=== PATIENT | female | born 1945 | race Caucasian/White ===

== ENCOUNTER 2016-11-13 15:40 | Inpatient (IN) | payer MEDICARE ==
[~2016-11-13] VITALS: Ht 160 cm; Wt 124.5 kg
[2016-11-13 18:05] VITALS: BP 152/83
[2016-11-13] MEDS ORDERED: DIAZEPAM 2 MG (VALIUM) TAB PO PRN (19:30)
[2016-11-13] MEDS ORDERED: CYCLOBENZAPRINE 10 MG (FLEXERIL) TAB PO PRN (19:30)
[2016-11-13] MEDS: RT-ADVAIR HFA 115/21 MCG PER PUFF IH SCH (20:00)
[2016-11-13] MEDS ORDERED: RT-ALBUTEROL SULF 2.5 MG/3 ML PRE-MIX VIAL IH PRN (20:00)
[2016-11-13] MEDS: CIPROFLOXACIN 500 MG (CIPRO) TABLET PO SCH (20:48)
[2016-11-13] MEDS: CARVEDILOL 12.5 MG (COREG) TABLET PO SCH (20:48)
[2016-11-13] MEDS: inSUlin DETERMIR 1 UNIT/0.01 ML (LEVEMIR) CHARGE PER UNIT SQ SCH (20:48)
[2016-11-13] MEDS: HYDROcodone/APAP 5 MG/325 MG (LORTAB) TAB PO PRN (20:48)
--- NOTE | 2016-11-13 20:59 | HISTORY AND PHYSICAL ---
DATE OF SERVICE: 11/13/2016 CHIEF COMPLAINT: Difficulty with transferring in and out of bed, decreased mobility. HISTORY OF PRESENT ILLNESS: The patient is a 71-year-old female with insulin-dependent diabetes mellitus for many years, as well as a right BKA who had been modified independent at the wheelchair level until recently when she developed pneumonia requiring hospitalization this past July at [facility]. She was subsequently sent to a local care center and then went home where she developed a UTI. She was subsequently admitted to [facility] on 11/08/2016. She was treated with antibiotics for sepsis due to UTI.She was found to have drainage from leg wounds positive for MRSA and patient was placed on contact precautions. She currently has an indwelling Lester catheter. She requires assistance for her ADLs and mobility skills. Her over 2 years ago. She lives in a double-wide trailer in [facility] with her daughter. Her daughter does work three 12-hour shifts, working for the [employer] and is not home during that time. She does have ramps for accessibility to her home. She has her own power chair. She is currently completing a course of Cipro for her UTI. She has some skin breakdown on her residual right leg as well as her left leg and she has dressings on those. She complains of pain in her right shoulder and arm which relates to rheumatism or arthritic pain as well as pain over the coccygeal region from pressure.She currently is min assist for transfers She is non ambulatory.She has her Poer chair here and is able to operate it.She is Modified Independent for eating and Setup for grooming.She is Mod asssit for bathing and upper body dressing. She is dependent for lower body dressing.Bladder currently managed with Indwelling Lester catheter Bowel reported to be continent PAST MEDICAL HISTORY: Right BKA, diabetic leg ulcers, stroke in the past with minimal left residual hemiparesis, type 2 diabetes mellitus, insulin-dependent. Chronic renal insufficiency, congestive heart failure, GERD, hypertension, hyperlipidemia. PAST SURGICAL HISTORY: Right BKA, hysterectomy. ALLERGIES: LISINOPRIL. FAMILY HISTORY: Noncontributory. SOCIAL HISTORY: Essentially is per above. REVIEW OF SYSTEMS: A 10-point review of systems is significant for right arm pain, coccygeal pain from pressure, generalized weakness, fatigues easily. MEDICATIONS: Cipro 500 mg p.o. b.i.d., hydrocodone/APAP 5/325 one tablet p.o. q.4 hours p.r.n. pain, diazepam 2 mg p.o. t.i.d. p.r.n. anxiety, Advair Diskus 2 puffs b.i.d., albuterol inhaler 2 puffs q.4 hours p.r.n. shortness of breath, ASA 81 mg p.o. daily, Lipitor 40 mg p.o. each day at bedtime, Coreg 25 mg p.o. b.i.d., Flexeril 10 mg p.o. t.i.d. p.r.n. spasm, fluoxetine 20 mg p.o. daily, insulin NovoLog 24 units subcutaneous with meals and insulin Detemir 45 units subcutaneous b.i.d., amlodipine 10 mg p.o. daily, Protonix 20 mg p.o. daily, Plavix 75 mg p.o. daily. PHYSICAL EXAMINATION: GENERAL: Significant for a pleasant obese female appearing her stated age, lying in bed in no acute distress. VITAL SIGNS: Blood pressure is 145/71, pulse is 65. She is afebrile, respirations 20. Height 5 feet 3 inches, weight 274 pounds, BMI 48.63. O2 sat 93% on room air. HEENT: The patient's speech and hearing is grossly intact. No oral lesion is noted. NECK: Supple without mass. HEART: Regular rhythm. LUNGS: Clear. ABDOMEN: Obese, soft, nontender. Bowel sounds present. EXTREMITIES: Her right BKA is nontender to the touch. There is a small area of skin breakdown covered with a bandage. Her left leg sensation is grossly intact to touch. She has 2 areas of skin breakdown covered with small dressings. GENITOURINARY: Indwelling Lester catheter to dependent drainage. MUSCULOSKELETAL: The patient has functional passive range of motion of all 4 limbs. NEUROLOGIC: Sensation is grossly intact to touch. Cognition grossly intact.. She is nonambulatory. Strength RT Upper Extremity 2/5 Left Upper extremity 5/5 Hip flexion bilateral 2/5. Left knee extension 5/5 left ankle 5/5 Rt knee flexion 4/5 IMPRESSION: 1. General debilitation secondary to sepsis due to urinary tract infection. 2. Morbid obesity. 3. Insulin-dependent diabetes mellitus. 4. Hypertension, controlled with medication. 5. Gastroesophageal reflux disease, on medication. 6. Prior right-sided stroke with minimal residual left hemiparesis. 7. Right pqzix-ncw-mfiu amputation. 8. Diabetic ulcers both legs with mrsa drainage on contact precautions PLAN: The patient will have a comprehensive program of inpatient rehabilitation with a goal of maximizing level of functional independence prior to discharge home with her daughter. Will focus on wheelchair level of function as she has been nonambulatory for years, I believe. She states that she was provided with a prosthesis, but it never fitted correctly. The patient will have PT, OT 90 minutes per day each discipline, 5 days a week for 2 weeks for wheelchair level of function mobility and transfers, bed mobility, balance, ADLs, any patient, family caregiver training necessary, any adaptive equipment and training necessary. Speech therapy to do cognitive assessment, treat as indicated. Rehabilitation nursing to assist with bowel, bladder, skin, wound care, medication administration, pain management Lester catheter care. Will discontinue Lester catheter in a few days and have a trial of voiding. electronics worker to assist with discharge planning, community reentry. Will consultDR Engel to assist with medical management in this out-of-town patient. Accu-Cheks q.i.d. a.c. and at bedtime. Check admission labs in a.m. Consult Dr. Dietz, wound care service, for followup care of chronic diabetic foot ulcers.Continue contact precautions.The patient requesting a trapeze to assist with bed mobility.I believe that the patient was using one at home.Have asked Nursing to follow up re availability. ESTIMATED LENGTH OF STAY: Two weeks. PROGNOSIS: Rehab prognosis appears good for goal of discharging home with daughter, hopefully modified independent to supervision for ADLs and mobility skills at the wheelchair level of function. DIET: Carb consistent. CODE STATUS: Full code. Job ID: [id number] DocumentID: [id number] Dictated Date: 11/13/2016 19:51:56 Principal Military Analyst Date: 11/13/2016 20:58:40 Dictated By: MINOR COLÓN MD [facility]
[2016-11-13] MEDS ORDERED: ATORVASTATIN 40 MG (LIPITOR) TABLET PO SCH (21:00)
[2016-11-14 06:00] VITALS: BP 99/45
[2016-11-14] MEDS ORDERED: PANTOPRAZOLE 20 MG TABLET (PROTONIX) PO SCH (07:00)
[2016-11-14] MEDS: RT-ADVAIR HFA 115/21 MCG PER PUFF IH SCH (07:40)
[2016-11-14 07:48] LABS: BASOPHILS % (AUTO) 0 % (0-10); EOSINOPHILS # (AUTO) 0.2 10^3/uL (0.0-0.3); EOSINOPHILS % (AUTO) 3 % (0-10); LYMPHOCYTES # (AUTO) 1.1 X 10^3 (1.0-4.0); LYMPHOCYTES % (AUTO) 17 % (12-44); MEAN CORPUSCULAR HEMOGLOBIN 23 PG (25-34); MEAN CORPUSCULAR HGB CONC 29 G/DL (32-36); MEAN CORPUSCULAR VOLUME 80 FL (80-99); MEAN PLATELET VOLUME 10.1 FL (7.4-10.4); MONOCYTES # (AUTO) 0.5 X 10^3 (0.0-1.0); MONOCYTES % (AUTO) 7 % (0-12); NEUTROPHILS % (AUTO) 73 % (42-75); PLATELET COUNT 187 10^3/uL (130-400); RED BLOOD COUNT 4.53 10^6/uL (4.35-5.85); RED CELL DISTRIBUTION WIDTH 17.3 % (10.0-14.5); WHITE BLOOD COUNT 6.8 10^3/uL (4.3-11.0)
[2016-11-14 08:05] LABS: ALBUMIN 3.2 GM/DL (3.2-4.5); BILIRUBIN,TOTAL 0.4 MG/DL (0.1-1.0); CALCIUM 9.6 MG/DL (8.5-10.1); CREATININE SERUM 1.12 MG/DL (0.60-1.30); POTASSIUM 4.1 MMOL/L (3.6-5.0); TOTAL PROTEIN 6.4 GM/DL (6.4-8.2)
--- NOTE | 2016-11-14 08:22 | Consultation ---
History of Present Illness History of Present Illness Patient Consulted On(jacky/time) 11/14/16 08:17 Time Seen by Provider: 08:20 History of Present Illness patient recently had pneumonia. Patient came from a Hospital in [place]. Patient had a UTI causing sepsis. Patient is an insulin-dependent diabetic for 13 years. Patient previously had a stroke on the left side. Patient obese.. Patient has BKA. Patient is chronic renal insufficiency.. GERD. Right BKA. And hysterectomy . Patient stopped smoking after BKA. Patient has COPD Allergies and Home Medications Allergies Coded Allergies: lisinopril (Verified Allergy, Unknown, 11/13/16) Past Oqhbhuv-Kiiqtx-Bomiiy Hx Patient Social History Alcohol Use: Denies Use Recreational Drug Use: No Smoking Status: Former Smoker Type Used: Cigarettes Recent Foreign Travel: No Contact w/Someone Who Travel: No Recent Infectious Disease Expo: No Recent Hopitalizations: Yes Immunizations Up To Date Date of Pneumonia Vaccine: Dec 24, 2014 Seasonal Allergies Seasonal Allergies: No Surgeries History of Surgeries: Yes (LEG AMPUTATION) Surgeries: Hysterectomy, Orthopedic Respiratory History of Respiratory Disorde: Yes Respiratory Disorders: COPD Cardiovascular History of Cardiac Disorders: Yes (ANGIOGRAPHY) Genitourinary History of Genitourinary Disor: Yes Genitourinary Disorders: Renal Failure, UTI-Chronic Gastrointestinal History of Gastrointestinal Di: Yes Gastrointestinal Disorders: Gastroesophageal Reflux Musculoskeletal History of Musculoskeletal Dis: Yes Musculoskeletal Disorders: Amputee HEENT History of HEENT Disorders: No Cancer History of Cancer: No Psychosocial History of Psychiatric Problem: No Integumentary History of Skin or Integumenta: No Blood Transfusions History of Blood Disorders: No Review of Systems-General Constitutional: malaise, weakness EENTM: no symptoms reported Respiratory: short of breath, other (COPD on oxygen) Cardiovascular: no symptoms reported Gastrointestinal: no symptoms reported Genitourinary: other (Renal insufficiency and UTIs) Physical Exam-General Problems Physical Exam Vital Signs Vital Sign - Last 12Hours 11/13/16 11/13/16 18:05 21:00 Temp 97.4 Pulse 68 Resp 18 B/P (MAP) 152/83 Pulse Ox 95 O2 Delivery Room Air O2 Flow Rate 3.00 Capillary Refill : General Appearance: WD/WN, no apparent distress, obese Eyes: Bilateral Eye Normal Inspection HEENT: normal ENT inspection Neck: non-tender, full range of motion Respiratory: decreased breath sounds, other (On oxygen) Cardiovascular: regular rate, rhythm Gastrointestinal: non tender, soft Assessment/Plan Assessment/Plan Admission Diagnosis/Plan debility. Insulin-dependent diabetic. Obesity. COPD. Right BKA. Renal insufficiency.. History of UTI with sepsis. Previous history of pneumonia Clinical Quality Measures DVT/VTE Risk/Contraindication: Risk Factor Score Per Nursin RFS Level Per Nursing on Admit: 4+=Very High ANNI SANTOS DO Nov 14, 2016 08:22
[2016-11-14] MEDS: inSUlin ASPART (NovoLOG) 1 UNIT/0.01 ML (CHARGE PER UNIT) SC SCH ×3 (08:43→17:57)
[2016-11-14] MEDS ORDERED: amLODIPine 10 MG (NORVASC) TAB PO SCH (09:00)
[2016-11-14] MEDS ORDERED: FLUoxetine HCL 20 MG (PROzac) CAP PO SCH (09:00)
[2016-11-14] MEDS ORDERED: CLOPIDOGREL 75 MG (PLAVIX) TABLET PO SCH (09:00)
[2016-11-14] MEDS ORDERED: ASPIRIN E.C. 81 MG (ECOTRIN) TAB PO SCH (09:00)
--- NOTE | 2016-11-14 09:33 | PM&R Post Admission Assessment ---
Post Admission Physician Asses The preadmission screen agrees with the post admission assessment that the patient is a good candidate for inpatient rehabilitation. The patient will have a comprehensive program of inpatient rehabilitation with a goal of maximizing level of functional independence prior to discharge home with HHC and family. The patient will have PT/OT ninety minutes per day, each discipline, five days a week for gait, strengthening, conditioning, balance, ADLs, any patient/family/caregiver training as necessary. Speech therapy to do cognitive assessment and treat as indicated. Rehabilitation nursing to assist with bowel, bladder, skin, wound care, medication administration, pain management. Hris Coordinator to assist with discharge planning, community reentry. . She appears to be well motivated to participate in three hours of therapy a day. She should be able to tolerate three hours of therapy a day from a medical standpoint. She should benefit from the three hours of therapy a day. She has a reasonable discharge plan, reasonable discharge rehabilitation goals and a supportive family. She has various comorbidities that need to be closely monitored with medications and treatments adjusted on a daily basis as needed. These include: Chronic daibetic ulcers of legs Morbid obesity IDDM HTN GERD Prior RT BKA Prior rt CVA Barriers to discharge for this patient who had been independent prior to this are for her to be modified independent to supervision for ADLs and mobility skills at the w/c level of function prior to discharge home with family and HHC , so as to lessen the burden of the caregivers. Risks for this patient include: 1. Fall 2. Fracture 3. DVT 4. Pulmonary embolism 5. Wound infection 6. Skin breakdown 7. Contractures 8. Poorly controlled pain 9. Urinary retention 10. Recurrent UTI 11. Respiratory infection 12. Aspiration 13. Poorly controlled HTN 14. Recurrent stroke Estimated Length of Stay: 14 days Prognosis: Rehab prognosis appears good for goal of discharge home with HHC and family modified independent to supervision for ADLs and mobility skills at the w/c level of function.The patient has her own powerchair and has not been an ambulator since RT BKA Has a prostesis at home but never usedit-felt it didnt fit well Patient also has CPAP at home but doesnt use Does have 02 at night at home.. MINOR COLÓN MD Nov 14, 2016 09:33
[2016-11-14] MEDS: inSUlin DETERMIR 1 UNIT/0.01 ML (LEVEMIR) CHARGE PER UNIT SQ SCH ×2 (09:56→21:03)
[2016-11-14] MEDS: CARVEDILOL 12.5 MG (COREG) TABLET PO SCH ×2 (09:57→21:03)
[2016-11-14] MEDS: CIPROFLOXACIN 500 MG (CIPRO) TABLET PO SCH ×2 (09:58→21:03)
[2016-11-14] MEDS ORDERED: INSU100I14 SC (10:43)
[2016-11-14] MEDS ORDERED: FLUO20CA25 PO (10:43)
[2016-11-14] MEDS ORDERED: INSU100V5 SC (10:43)
[2016-11-14] MEDS ORDERED: OMEP20CA12 PO (10:43)
[2016-11-14] MEDS ORDERED: ASPI-983 PO (10:43)
[2016-11-14] MEDS ORDERED: FLUT1DIS26 INH (10:43)
[2016-11-14] MEDS ORDERED: ATOR40TA70 PO (10:43)
[2016-11-14] MEDS ORDERED: CRV25T PO (10:43)
[2016-11-14] MEDS ORDERED: CYCL10TA9 PO ×2 (10:43→15:52)
[2016-11-14] MEDS ORDERED: CLOP75TA28 PO (10:43)
[2016-11-14] MEDS ORDERED: AMLO10TA2 PO (10:43)
[2016-11-14] MEDS ORDERED: ALBU18HF2 INH (10:43)
[2016-11-14] MEDS ORDERED: HYDR-3820 PO ×3 (10:44→15:52)
--- NOTE | 2016-11-14 11:01 | Physical Therapy Evaluation ---
PT Evaluation-General Medical Diagnosis Admission Date Nov 13, 2016 at 17:54 Medical Diagnosis: MRSA, UTI Onset Date: Nov 08, 2016 Therapy Diagnosis Therapy Diagnosis: general weakness Height/Weight Height (Feet): 5 Height (Inches): 3.00 Weight (Pounds): 274 Weight (Ounces): 8.0 Precautions Precautions/Isolations: Fall Prevention, Standard Precautions, Contact/Enteric Isolation Referral Physician: Paul Reason for Referral: Evaluation/Treatment Medical History Pertinent Medical History: CVA, DM, GERD, Heart Failure, HTN Additional Medical History rt BKA, history of stroke, MINOR, chronic renal insuff Current History Pt was being treated at [place] for MRSA and UTI, came from a [facility] but was living at home with daughter prior to that. Reviewed History: Yes Social History Home: Single Level Current Living Status: Children Entry Into Home: Ramp Pt is , lives with daughter. Home has 3 ramps and is w/c accessible. Pt' s daughter works 14 hour days up to 6 days a week so will not be home to help during that time. Prior/Core FIM Prior Level of Function Functional Cornelius Measure 0=Not Assessed/NA 4=Minimal Assistance 1=Total Assistance 5=Supervision or Setup 2=Maximal Assistance 6=Modified Cornelius 3=Moderate Assistance 7=Complete Cornelius Bed Mobility: 6 Transfers (B,C,W/C) (FIM): 6 Gait: 0 Locomotion: 6 (used power wheelchair) Wheelchair Mobility: 6 Pt was modified independent with all transfers and wheelchair mobility. PT Evaluation-Current Subjective Pt was lying in bed prior to tx and agreeable to therapy. Pt was left seated in w/c with nurse call, phone, all needs in reach post tx. Pain Numeric Pain Scale: 7 Location Body Site: Arm Pain Description: Ache Comment: pain in entire right arm and on tailbone. Pt/Family Goals Pt goal is to return home with modified independence for all mobility and transfers. Objective Patient Orientation: Normal For Age Attachments: Lester Catheter ROM/Strength Strength Upper Extremities Right UE is weak and unable to maintain full ROM, 2/5 throughout. Left UE is 5/5 elbow flexion, 5/5 wrist flexion, 5/5 wrist extension, 5/5 cook fast food strength. Strenght Lower Extremities Left LE hip flexion 2/5, Right LE hip flexion 2/5 Left knee extension 5/5, R knee flexion 4/5, R ankle DF 5/5. Integumentary/Posture Integumentary Pt has wound on bottom and left toes. Pt also has sores on right LE anteriorly. Bowel Incontinence: Yes Bladder Incontinence: Lester Cath Sensory Vision: Wears Glasses Hearing: Functional Hand Dominance: Right Sensation Right Upper Extremit: Intact Sensation Left Upper Extremity: Intact Sensation Right Lower Extremit: Intact Sensation Left Lower Extremity: Intact Transfers Functional Cornelius Measure 0=Not Assessed/NA 4=Minimal Assistance 1=Total Assistance 5=Supervision or Setup 2=Maximal Assistance 6=Modified Cornelius 3=Moderate Assistance 7=Complete IndependenceIRFPAI Quality Coding Scale 6 Independent with activity with or without an assistive device 5 Patient requires set up or clean up by helper. Patient completes activity by themselves 4 Supervision or touching assist (CGA). [place] provide cues , steadying assist 3 The helper provides less than half the effort to complete the activity 2 The helper provides more than half the effort to complete the activity 1 Dependent. The helper does all the effort to complete an activity 7 Patient refused to complete or attempt activity 9 The patient did not perform the activity before the current illness or injury 88 Not attempted due to Medical conditions or safety concerns Transfers (B, C, W/C) (FIM): 4 Scootin Rollin Roll Left to Right (QC): 4 Supine to/from Sit: 4 Sit to/from Stand: 4 bed t/f WC(FIM only if WC use): 4 Sit to Lying (QC): 4 Lying to Sitting/Side of Bed(Q: 4 Sit to Stand (QC): 4 Chair/Msc-sh-Ewukx Xfer(QC): 4 Car Transfer (QC): 88 Pt requires CGA for all transfers and bed mobility for safety. She scoots from the bed to her power chair without using a sliding board, and is in fact resistant to using a sliding board. Gait Does the Patient Walk?: No and Walking Goal NOT indicated Wheelchair Training Does the Pt Use a Wheelchair?: Yes Wheelchair (FIM): 6 Wheelchair Distance (FIM): 3=150 ft Distance: 300' Wheelchair Level of Assist: 6 Wheel 50 ft with 2 turns (QC): 6 Wheel 150 ft (QC): 6 Type of Wheelchair: Motorized Pt is modified independent with all wheelchair mobility. Balance Sitting Static: Normal Sitting Dynamic: Normal Treatment Pt completes seated hip flexion exercises and glute sets x20 for functional LE strengthening to facilitate independence in transfers and bed mobility. Pt will complete therapy to increase activity tolerance, functional strength, safety, balance, transfer, bed mobility, and ROM. Assessment/Needs Pt is CGA with all bed mobility and transfers for safety. Pt is mod I with all wheelchair mobility. Rehab Potential: Fair PT Short Term Goals Short Term Goals Time Frame: Nov 21, 2016 Transfers (B,C,W/C) (FIM): 5 Gait (FIM): 0 Distance (FIM): 0=does not occure PT Penitentiary Goals Penitentiary Goals PT Emergency Crew Supervisor Goals Time Frame: Dec 05, 2016 Transfers (B,C,W/C) (FIM): 6 Sit to Lying (QC): 6 Lying-Sitting on Side/Bed(QC): 6 Sit to Stand (QC): 6 Rollin Roll Left to Right (QC): 6 Chair/Bdo-mo-Pwcuu Xfer(QC): 6 Car Transfer (QC): 6 Does the Patient Walk: No and Walking Goal NOT indicated PT Plan Problem List Problem List: Activity Tolerance, Functional Strength, Safety, Balance, Transfer, Bed Mobility, ROM Treatment/Plan Treatment Plan: Continue Plan of Care Treatment Plan: Bed Mobility, Education, Functional Activity Anita, Functional Strength, Group Therapy, Safety, Therapeutic Exercise, Transfers Pt will complete therapy to increase activity tolerance, functional strength, safety, balance, transfer, bed mobility, and ROM to achieve mod I with all transfers and mobility. Treatment Duration: Dec 05, 2016 Frequency: At least 5-7 days/Wk (IRF) Estimated Hrs Per Day: 1.5 hours per day Patient and/or Family Agrees t: Yes Safety Risks/Education Patient Education: Transfer Techniques, Reviewed Precautions, Correct Positioning, W/C Management, Safety Issues Teaching Recipient: Patient Teaching Methods: Demonstration, Discussion Response to Teaching: Verbalize Understanding, Reinforcement Needed Discharge Recommendations Plan Pt will discharge to live with daughter in home. Therapy D/C Recommendations: Home w/ Family Support Time/GCodes Time In: 1000 Time Out: 1100 Total Billed Treatment Time: 60 Total Billed Treatment 1 visit 30 EVL 15 FA 15 KITAH DARION ANDRE PT Nov 14, 2016 11:01
--- NOTE | 2016-11-14 12:45 | Occupational Therapy Eval ---
OT Evaluation-General/PLF Medical Diagnosis Admission Date Nov 13, 2016 at 17:54 Medical Diagnosis: MRSA, UTI Onset Date: Nov 08, 2016 Therapy Diagnosis Therapy Diagnosis: decreased self care skills Height/Weight Height (Feet): 5 Height (Inches): 3.00 Weight (Pounds): 274 Weight (Ounces): 8.0 Precautions Precautions/Isolations: Fall Prevention, Standard Precautions, Contact/Enteric Isolation Safety Interventions: None Medical History Pertinent Medical History: CVA, DM, GERD, Heart Failure, HTN Additional Medical History depression, hyperlipidemia Reviewed History: Yes Social History Home: Single Level Current Living Status: Children Entry Into Home: Ramp ADL-Prior Level of Function ADL PLOF Comments Pt states she had a bath aid 2x/wk, but was otherwise able to complete basic self care without assistance at w/c level. Does not ambulate. Uses power w/c for mobility. Pt lives with daughter who works and is gone for 14hrs/day, so pt will need to be independent. Wears O2 at night and PRN during the day. Was getting home health nursing. Pt was recently in SNF following illness, but states she had been home about a week before she was hospitalized. DME/Equipment: Grab Bars, Shower Pt states she has a roll in shower. Transfers from her power chair to an old w/ c which she can roll into shower. Drive Self: No OT Current Status Subjective Pt in bed, states she is tired, but agrees to treatment. Pt reports 8/10 pain in right shoulder which she states is secondary to arthritis. Mental Status/Objective Patient Orientation: Person, Place, Situation Attachments: Lester Catheter Current Glasses/Contacts: Yes Hearing Aids: No Dentures/Partials: No Hand Dominance: Right Upper Extremity ROM Right shoulder has decreased ROM secondary to pain. Left UE grossly WFL Upper Extremity Coordination Grossly Intact Upper Extremity Strength Impaired right shoulder Left UE grossly 4/5 ADL-Treatment ADL-Current Pt supine to sit with minimal assistance for trunk. Sponge bath completed seated EOB. Pt able to wash bilateral UE, chest, abdomen, and bilateral upper legs. Assist required for buttocks, ramon area, and bilateral lower legs. Don pullover dress with minimal assistance. Pt states she does not wear pants, only wears Depends at home. Pt required total assist to doff/don left sock. Pt combed hair with SBA. Increased time required for ADL tasks. Meal tray arrived. Pt able to manage containers, cut food, and feed self with modified independence. Pt sitting EOB eating breakfast with all needs met after session. Functional [place] Measure 0=Not Assessed/NA 4=Minimal Assistance 1=Total Assistance 5=Supervision or Setup 2=Maximal Assistance 6=Modified [place] 3=Moderate Assistance 7=Complete IndependenceIRFPAI Quality Coding Scale 6 Independent with activity with or without an assistive device 5 Patient requires set up or clean up by helper. Patient completes activity by themselves 4 Supervision or touching assist (CGA). [place] provide cues , steadying assist 3 The helper provides less than half the effort to complete the activity 2 The helper provides more than half the effort to complete the activity 1 Dependent. The helper does all the effort to complete an activity 7 Patient refused to complete or attempt activity 9 The patient did not perform the activity before the current illness or injury 88 Not attempted due to Medical conditions or safety concerns Eating (FIM): 6 Eating (QC): 6 Grooming (FIM): 5 Bathing (FIM): 3 Shower/Bathe Self (QC): 3 Upper Body Dressing (FIM): 4 Upper Body Dressing (QC): 3 On/Off Footwear (QC): 1 Education OT Patient Education: Rehab process Teaching Recipient: Patient Teaching Methods: Discussion Response to Teaching: Verbalize Understanding OT Short Term Goals Short Term Goals Time Frame: Nov 21, 2016 Bathing(FIM): 4 Upper Body Dressing(FIM): 5 Lower Body Dressing(FIM): 4 Toileting(FIM): 4 Toilet/Commode Transfer(FIM): 4 Shower Transfer(FIM): 4 Additional Short Term Goals: 1-Demonstrate ADL Tasks, 2-Verbalize Understanding , 3-ImproveStrength/Anita 1=Demonstrate adherence to instructed precautions during ADL tasks. 2=Patient will verbalize/demonstrate understanding of assistive devices/ modifications for ADL. 3=Patient will improve strength/tolerance for activity to enable patient to perform ADL's. OT Custodial Goals Custodial Goals Time Frame: Dec 05, 2016 Eating (FIM): 6 Eating (QC): 6 Groomin Oral Hygiene (QC): 6 Bathing(FIM): 5 Shower/Bathe Self (QC): 5 Upper Body Dressing(FIM): 6 Upper Body Dressing (QC): 6 Lower Body Dressing(FIM): 5 Lower Body Dressing (QC): 4 On/Off Footwear (QC): 5 Toileting(FIM): 6 Toileting Hygiene (QC): 6 Toilet/Commode Transfer(FIM): 6 Toilet/Commode Transfer (QC): 6 Shower Transfer(FIM): 5 Additional Goals: 1-Demonstrate ADL Tasks, 2-Verbalize Understanding, 3- ImproveStrength/Anita 1=Demonstrate adherence to instructed precautions during ADL tasks. 2=Patient will verbalize/demonstrate understanding of assistive devices/ modifications for ADL. 3=Patient will improve strength/tolerance for activity to enable patient to perform ADL's. Goals established to promote increased functional independence to allow safe return home. OT Education/Plan Problem List/Assessment Assessment: Decreased Activ Tolerance, Decreased UE Strength, Dependent Transfers, Impaired I ADL's, Impaired Self-Care Skills Pt to benefit from skilled OT intervention for ADL training, transfers, strengthening, and home safety education to increase level of function and allow safe return home. Discharge Recommendations Plan/Recommendations: Continue POC Treatment Plan/Plan of Care Treatment,Training & Education: Yes Patient would benefit from OT for education, treatment and training to promote independence in ADL's, mobility, safety and/or upper extremity function for ADL' s. Plan of Care: ADL Retraining, Functional Mobility, Group Exercise/Act as Ind, UE Funct Exercise/Act Treatment Duration: Dec 05, 2016 Frequency: At least 5-7 days/Wk (IRF) Estimated Hrs Per Day: 1.5 hours per day Agreement: Yes Rehab Potential: Fair Time/GCodes Start Time: 08:00 Stop Time: 09:00 Total Time Billed (hr/min): 60 Billed Treatment Time 1 visit, EVL(15minutes), ADLx3(45minutes) ZAHIDA QUINTERO OT Nov 14, 2016 12:44
--- NOTE | 2016-11-14 13:44 | Occupational Ther Daily Note ---
OT Current Status-Daily Note Subjective Pt sitting in w/c, agrees to treatment. Mental Status/Objective Functional [place] Measure 0=Not Assessed/NA 4=Minimal Assistance 1=Total Assistance 5=Supervision or Setup 2=Maximal Assistance 6=Modified [place] 3=Moderate Assistance 7=Complete [place] ADL-Treatment Pt able to maneuver power w/c in room and go into restroom. Pt completed grooming tasks seated at sink. Pt brushed teeth and combed hair with set up and increased time. Pt requests to return to bed secondary to fatigue. Pt able to bring w/c up to EOB. Pt then scooted from w/c to EOB without sliding board using bilateral UE. Sit to supine with SBA. Pt requires some assistance for positioning in bed. Pt resting in bed with needs met after session. Functional [place] Measure 0=Not Assessed/NA 4=Minimal Assistance 1=Total Assistance 5=Supervision or Setup 2=Maximal Assistance 6=Modified [place] 3=Moderate Assistance 7=Complete IndependenceIRFPAI Quality Coding Scale 6 Independent with activity with or without an assistive device 5 Patient requires set up or clean up by helper. Patient completes activity by themselves 4 Supervision or touching assist (CGA). [place] provide cues , steadying assist 3 The helper provides less than half the effort to complete the activity 2 The helper provides more than half the effort to complete the activity 1 Dependent. The helper does all the effort to complete an activity 7 Patient refused to complete or attempt activity 9 The patient did not perform the activity before the current illness or injury 88 Not attempted due to Medical conditions or safety concerns Grooming (FIM): 5 Oral Hygiene (QC): 5 OT Short Term Goals Short Term Goals Time Frame: Nov 21, 2016 Bathing(FIM): 4 Upper Body Dressing(FIM): 5 Lower Body Dressing(FIM): 4 Toileting(FIM): 4 Toilet/Commode Transfer(FIM): 4 Shower Transfer(FIM): 4 Additional Short Term Goals: 1-Demonstrate ADL Tasks, 2-Verbalize Understanding , 3-ImproveStrength/Anita 1=Demonstrate adherence to instructed precautions during ADL tasks. 2=Patient will verbalize/demonstrate understanding of assistive devices/ modifications for ADL. 3=Patient will improve strength/tolerance for activity to enable patient to perform ADL's. OT Mcfp Goals Defect Cutter Goals Time Frame: Dec 05, 2016 Eating (FIM): 6 Eating (QC): 6 Groomin Oral Hygiene (QC): 6 Bathing(FIM): 5 Shower/Bathe Self (QC): 5 Upper Body Dressing(FIM): 6 Upper Body Dressing (QC): 6 Lower Body Dressing(FIM): 5 Lower Body Dressing (QC): 4 On/Off Footwear (QC): 5 Toileting(FIM): 6 Toileting Hygiene (QC): 6 Toilet/Commode Transfer(FIM): 6 Toilet/Commode Transfer (QC): 6 Shower Transfer(FIM): 5 Additional Goals: 1-Demonstrate ADL Tasks, 2-Verbalize Understanding, 3- ImproveStrength/Anita 1=Demonstrate adherence to instructed precautions during ADL tasks. 2=Patient will verbalize/demonstrate understanding of assistive devices/ modifications for ADL. 3=Patient will improve strength/tolerance for activity to enable patient to perform ADL's. OT Education/Plan Problem List/Assessment Pt to benefit from skilled OT intervention for ADL training, transfers, strengthening, and home safety education to increase level of function and allow safe return home. Discharge Recommendations Plan/Recommendations: Continue POC Treatment Plan/Plan of Care Patient would benefit from OT for education, treatment and training to promote independence in ADL's, mobility, safety and/or upper extremity function for ADL' s. Plan of Care: ADL Retraining, Functional Mobility, Group Exercise/Act as Ind, UE Funct Exercise/Act Treatment Duration: Dec 05, 2016 Frequency: At least 5-7 days/Wk (IRF) Estimated Hrs Per Day: 1.5 hours per day Agreement: Yes Rehab Potential: Fair Time/GCodes Start Time: 11:00 Stop Time: 11:30 Total Time Billed (hr/min): 30 Billed Treatment Time 1 visit, ADLx2(30minutes) ZAHIDA QUINTERO OT Nov 14, 2016 13:44
--- NOTE | 2016-11-14 14:05 | Physical Therapy Daily Note ---
PT Daily Note-Current Subjective Pt was lying in bed prior to tx and agreeable to therapy. Pt was lying in bed with nurse call, phone, tray all needs in reach post tx, also, patient on left side with pillow between knees and back support. Pain Numeric Pain Scale: 5-Moderate Pain Location Body Site: Arm Pain Description: Ache Mental Status Patient Orientation: Normal For Age Attachments: Lester Catheter Transfers Functional [place] Measure 0=Not Assessed/NA 4=Minimal Assistance 1=Total Assistance 5=Supervision or Setup 2=Maximal Assistance 6=Modified [place] 3=Moderate Assistance 7=Complete IndependenceIRFPAI Quality Coding Scale 6 Independent with activity with or without an assistive device 5 Patient requires set up or clean up by helper. Patient completes activity by themselves 4 Supervision or touching assist (CGA). [place] provide cues , steadying assist 3 The helper provides less than half the effort to complete the activity 2 The helper provides more than half the effort to complete the activity 1 Dependent. The helper does all the effort to complete an activity 7 Patient refused to complete or attempt activity 9 The patient did not perform the activity before the current illness or injury 88 Not attempted due to Medical conditions or safety concerns Transfers (B, C, W/C) (FIM): 4 Scootin Rollin bed mobility min assist Gait Training Does the Patient Walk?: No and Walking Goal NOT indicated Exercises Supine Ex: Ankle pumps, Quad Set, Glut sets, Heel Slides, Straight leg raise, Hip abd/add Supine Reps: 20 only hip exercises on right leg Treatments Pt completes supine exercises to increase functional strength. Assessment Current Status: Good Progress Pt completes supine exercises with min assist and support under legs. Pt requires mod assist to scoot to top of bed. PT Short Term Goals Short Term Goals Time Frame: Nov 21, 2016 Gait (FIM): 0 Distance (FIM): 0=does not occure Wheelchair Distance: 300' PT Broth Setter Goals Senior Care Goals PT Broth Setter Goals Time Frame: Dec 05, 2016 Transfers (B,C,W/C) (FIM): 6 Sit to Lying (QC): 6 Lying-Sitting on Side/Bed(QC): 6 Sit to Stand (QC): 6 Rollin Roll Left to Right (QC): 6 Chair/[id number] Xfer(QC): 6 Car Transfer (QC): 6 Does the Patient Walk: No and Walking Goal NOT indicated PT Plan Problem List Problem List: Activity Tolerance, Functional Strength, Safety, Balance, Transfer, Bed Mobility, ROM Treatment/Plan Treatment Plan: Continue Plan of Care Treatment Plan: Bed Mobility, Education, Functional Activity Anita, Functional Strength, Group Therapy, Safety, Therapeutic Exercise, Transfers Treatment Duration: Dec 05, 2016 Frequency: At least 5-7 days/Wk (IRF) Estimated Hrs Per Day: 1.5 hours per day Patient and/or Family Agrees t: Yes Safety Risks/Education Patient Education: Reviewed Precautions, Correct Positioning, Safety Issues Teaching Recipient: Patient Teaching Methods: Demonstration Response to Teaching: Verbalize Understanding, Reinforcement Needed Time/GCodes Time In: 1330 Time Out: 1400 Total Billed Treatment Time: 30 Total Billed Treatment 1 visit 30 DARION BARRAZA PT Nov 14, 2016 14:05
[2016-11-14] MEDS ORDERED: DIAZEPAM 5 MG (VALIUM) TABLET PO PRN (14:30)
[2016-11-14] MEDS ORDERED: CYCLOBENZAPRINE 10 MG (FLEXERIL) TAB PO PRN (14:30)
[2016-11-14] MEDS ORDERED: DILT180C54 PO (14:32)
[2016-11-14] MEDS ORDERED: FURO40TA4 (14:32)
[2016-11-14] MEDS ORDERED: CARV12.53 PO (14:32)
[2016-11-14] MEDS ORDERED: ERGO50006 (14:32)
[2016-11-14] MEDS ORDERED: FURO-124 PO (14:32)
[2016-11-14] MEDS ORDERED: SILV25CR21 TOP (14:32)
[2016-11-14] MEDS ORDERED: SPIR50TA2 PO (14:32)
[2016-11-14] MEDS ORDERED: DIAZ5TAB3 (14:32)
[2016-11-14] MEDS ORDERED: RIVA20TA (14:32)
[2016-11-14] MEDS ORDERED: ISOS30TA3 (14:32)
[2016-11-14] MEDS ORDERED: POTA20TA15 PO (14:34)
[2016-11-14] MEDS ORDERED: DICL100G18 TP (14:34)
--- NOTE | 2016-11-14 14:45 | ST Cognitive Linguistic Eval ---
Speech Evaluation-General Medical Diagnosis MRSA, UTI Onset Date: Nov 08, 2016 Therapy Diagnosis Therapy Diagnosis: Cognitive Linguistic Skills Grossly WNL Precautions Precautions/Isolations: Fall Prevention, Standard Precautions, Contact/Enteric Isolation Referral Referring Physician: Dr. Joe Miller Reason for Referral: Evaluation/Treatment Cognitive Evaluation Medical History Pertinent Medical History: CVA, DM, GERD, Heart Failure, HTN Reviewed History: Yes Social History Current Living Status: Children Speech PLF-Current Status Prior Level of Function The patient denied challenges or recent changes with cognition, speech, or language since her current admission. Subjective The patient was recently admitted to [facility] with a diagnosis of debility secondary to sepsis. The patient greeted the clinician appropriately and was agreeable to participation in the cognitive evaluation. To note, the patient's daughter was present for the evaluation on this date. Language Eval: Auditory Comprehends Simple Yes/No Ques: Functional Indent/Objects Multiple Mauro: Functional Ident/Pics in Multiple Mauro: Functional Follows 1-Step Commands: Functional Follows Complex Directions: Mild (Intermittent repetition necessary for increased accuracy.) Follows General Conversations: Functional Language Eval: Verbal Language Completes Spontaneous Greeting: Functional Produces Auto, Serial Info: Functional Imitates Simple Words/Phrases: Functional Word Finding: Mild Requests Basic Needs: Functional States Basic Personal Info: Functional Cognitive Patient Orientation The patient was oriented to month, day of week, date, and year (independently). Objective Cognitive Domain Attention: WNL Memory: Mild Problem Solving: Mild Executive Functions: Mild Objective Impression The patient demonstrated cognitive linguistic skills grossly within normal limits and appropriate for completion of ADLs. Communication/Social Cognition Comprehension: 5 Expression: 5 Social Interaction: 5 Problem Solvin Memory: 5 Speech Patient Assess Expression of Ideas/Wants: Expression (4) Understanding [place] Content: Usually Understands (3) Brief Interview-Mental Status: Yes Repetition of Three Words: Three (3) Temporal Orientation: Year: Correct (3) Temporal Orientation: Month: Accurate within 5 days(2) Temporal Orientation: Day: Correct (1) Recall : Wear to say "Sock": Yes, no cue required (2) Recall : Color: Yes, no cue required (2) Recall : Bed: No, could not recall (0) Speech-Plan Treatment Plan Speech Therapy Treatment Plan: Discontinue ST Evaluation, only. Frequency: Modified Program (IRF) Estimated Hrs Per Day: .25 hour per day (Evaluation, only.) Rehab Potential: Fair Safety Risks/Education Teaching Recipient: Patient Teaching Methods: Discussion Response to Teaching: Verbalize Understanding, Reinforcement Needed Education Topics Provided: Results, Recommendations, Plan of Care Time Speech Therapy Time In: 09:30 Speech Therapy Time Out: 09:45 Total Billed Time: 15 Billed Treatment Time 1, SANTIAGO LUND Nov 14, 2016 14:45
[2016-11-14] MEDS ORDERED: RT-ALBUTEROL SULF 2.5 MG/3 ML PRE-MIX VIAL IH PRN (15:00)
[2016-11-14] MEDS ORDERED: INSU100V SQ (15:52)
[2016-11-14] MEDS ORDERED: RT-ALBUINH IH (15:52)
[2016-11-14] MEDS ORDERED: OMEP20TA7 PO (15:52)
[2016-11-14] MEDS ORDERED: INSU100I10 SQ ×2 (15:52)
[2016-11-14] MEDS ORDERED: CHOL500049 PO (15:52)
[2016-11-14] MEDS ORDERED: CETI10TA17 PO (15:52)
--- NOTE | 2016-11-14 15:54 | PM & R (SOAP) Progress Note ---
Subjective Time Seen by Provider: 08:10 Subjective/Events-last exam Patient was seen in her room this AM Adjusting well to unit Appreciate Therapy and DR Clark notes Discussed home meds with PharmD by phone. Patient Min assist for transfers Objective Exam Last Set of Vital Signs Vital Signs Date Time Temp Pulse Resp B/P (MAP) Pulse Ox O2 Delivery O2 Flow Rate FiO2 11/14/16 12:03 97.5 11/14/16 08:00 Nasal Cannula 3.00 11/14/16 07:44 90 11/14/16 06:00 72 20 99/45 Capillary Refill : I&O Intake and Output 11/15/16 00:00 Intake Total 200 ml Output Total 3100 ml Balance -2900 ml Intake Oral 200 ml Output Urine Total 3100 ml General: Alert, Oriented X3, Cooperative, No Acute Distress HEENT: Atraumatic, PERRLA, EOMI, Mucous Memb Moist/[place] Neck: Supple, No JVD Lungs: Clear to Auscultation Heart: Regular Rate Abdomen: Normal Bowel Sounds, Soft, No Tenderness Extremities: Other (RT BKA rssidual limb non tender small area of breakdown both legs covered with dressing) Skin: Other (as per above) Neuro: Other (Strength 2/5 RT Upper limb associated with edema Left Hip flex 2/ 5 Left Knee ext 5/5 Rt L extremity hip flex 2/5 sensation grossly intact to touch) Results Lab Laboratory Tests 11/13/16 20:13: Glucometer 168H 11/14/16 04:49: Glucometer 125H 11/14/16 07:36: White Blood Count 6.8, Red Blood Count 4.53, Hemoglobin 10.6L, Hematocrit 36, Mean Corpuscular Volume 80, Mean Corpuscular Hemoglobin 23L, Mean Corpuscular Hemoglobin Concent 29L, Red Cell Distribution Width 17.3H, Platelet Count 187, Mean Platelet Volume 10.1, Neutrophils (%) (Auto) 73, Lymphocytes (%) (Auto) 17 , Monocytes (%) (Auto) 7, Eosinophils (%) (Auto) 3, Basophils (%) (Auto) 0, Neutrophils # (Auto) 5.0, Lymphocytes # (Auto) 1.1, Monocytes # (Auto) 0.5, Eosinophils # (Auto) 0.2, Basophils # (Auto) 0.0, Sodium Level 144, Potassium Level 4.1, Chloride Level 105, Carbon Dioxide Level 30, Anion Gap 9, Blood Urea Nitrogen 18, Creatinine 1.12, Estimat Glomerular Filtration Rate 48, BUN/ Creatinine Ratio 16, Glucose Level 116H, Calcium Level 9.6, Total Bilirubin 0.4 , Aspartate Amino Transf (AST/SGOT) 18, Alanine Aminotransferase (ALT/SGPT) 23, Alkaline Phosphatase 58, Total Protein 6.4, Albumin 3.2 Assessment/Plan Assessment General debil s/p sepsis due to UTI Mrsa wounds legs on contact precautions RT BKA IDDM Morbid obesity MACIEL noncompliant with cpap on 02 at night HTN controlled with meds Plan Continue PT/OT Team Conference tomorrow F/U with woundcare and DR Engel as their schedule MINOR COLÓN MD Nov 14, 2016 15:54
[2016-11-14] MEDS: RIVAROXABAN 20 MG TABLET (XARELTO) PO SCH (17:57)
[2016-11-14 18:39] VITALS: BP 121/64
[2016-11-14] MEDS: ATORVASTATIN 40 MG (LIPITOR) TABLET PO SCH (21:03)
[2016-11-15] MEDS: HYDROcodone/APAP 5 MG/325 MG (LORTAB) TAB PO PRN (04:21)
[2016-11-15 05:08] VITALS: BP 134/62
[2016-11-15] MEDS: inSUlin ASPART (NovoLOG) 1 UNIT/0.01 ML (CHARGE PER UNIT) SC SCH ×3 (06:46→17:12)
--- NOTE | 2016-11-15 08:01 | Progress Note (SOAP) ---
Subjective Time Seen by Provider: 08:00 Subjective/Events-last exam D. Diabetes. Debility. History of atrial fibrillation. Patient not voicing any complaints today CAD Objective Exam Vital Signs Date Time Temp Pulse Resp B/P (MAP) Pulse Ox O2 Delivery O2 Flow Rate FiO2 11/15/16 05:08 98.9 67 16 134/62 92 Nasal Cannula 3.00 11/14/16 20:55 Nasal Cannula 3.00 11/14/16 20:26 Nasal Cannula 2.00 11/14/16 18:39 96.7 56 14 121/64 100 Nasal Cannula 3.00 11/14/16 12:03 97.5 11/14/16 08:43 97.5 11/14/16 08:00 Nasal Cannula 3.00 Capillary Refill : General Appearance: No Apparent Distress, WD/WN Results Lab Laboratory Tests 11/14/16 10:50: Glucometer 135H 11/14/16 16:24: Glucometer 75 11/14/16 20:13: Glucometer 121H 11/15/16 05:21: Glucometer 136H Assessment/Plan Assessment/Plan Assess & Plan/Chief Complaint debility. Insulin-dependent diabetic. Obesity. COPD. Right BKA. Renal insufficiency.. History of UTI with sepsis. Previous history of pneumonia. . 11/15/16. Debility. Insulin-dependent diabetes UTI with sepsis. Previous pneumonia. Previous atrial fib resolve by IV medicine Clinical Quality Measures DVT/VTE Risk/Contraindication: Risk Factor Score Per Nursin RFS Level Per Nursing on Admit: 4+=Very High ANNI SANTOS DO Nov 15, 2016 08:01
[2016-11-15] MEDS: SPIRONOLACTONE 25 MG (ALDACTONE) TAB PO SCH (08:39)
[2016-11-15] MEDS: DILTIAZEM 180 MG (CARDIZEM CD) CAP PO SCH (08:40)
[2016-11-15] MEDS: ISOSORBIDE MONONITRATE 30 MG (IMDUR) TAB PO SCH (08:40)
[2016-11-15] MEDS: KCL 20 MEQ TAB (K-DUR) PO SCH (08:40)
[2016-11-15] MEDS: FUROSEMIDE 40 MG (LASIX) TAB PO SCH (08:40)
[2016-11-15] MEDS: amLODIPine 10 MG (NORVASC) TAB PO SCH (08:40)
[2016-11-15] MEDS: CARVEDILOL 12.5 MG (COREG) TABLET PO SCH ×2 (08:40→21:20)
[2016-11-15] MEDS: CIPROFLOXACIN 500 MG (CIPRO) TABLET PO SCH ×2 (08:40→21:20)
[2016-11-15] MEDS: inSUlin DETERMIR 1 UNIT/0.01 ML (LEVEMIR) CHARGE PER UNIT SQ SCH ×2 (08:41→21:20)
[2016-11-15] MEDS ORDERED: ASPIRIN E.C. 81 MG (ECOTRIN) TAB PO SCH (09:00)
--- NOTE | 2016-11-15 10:30 | Physical Therapy Daily Note ---
PT Daily Note-Current Subjective Pt. agrees to Rx. Friendly and states she prefers to go to [facility] [place] and her dtr wants this as well. States she has been there before and it is safe and clean and she has friends there and it makes the whole situation better for her family. pt. expresses that she is totally confident with all her TRFs and really only needs assist for cleaning after BMs. Pt. states she has a shy bowel and would like to wait til she goes home but feels the system that this CROSS CUT SAWYER sat up will work very well. Pain Numeric Pain Scale: 0-No Pain Mental Status Patient Orientation: Normal For Age Attachments: Zaman Catheter Transfers Functional [place] Measure 0=Not Assessed/NA 4=Minimal Assistance 1=Total Assistance 5=Supervision or Setup 2=Maximal Assistance 6=Modified [place] 3=Moderate Assistance 7=Complete IndependenceIRFPAI Quality Coding Scale 6 Independent with activity with or without an assistive device 5 Patient requires set up or clean up by helper. Patient completes activity by themselves 4 Supervision or touching assist (CGA). [place] provide cues , steadying assist 3 The helper provides less than half the effort to complete the activity 2 The helper provides more than half the effort to complete the activity 1 Dependent. The helper does all the effort to complete an activity 7 Patient refused to complete or attempt activity 9 The patient did not perform the activity before the current illness or injury 88 Not attempted due to Medical conditions or safety concerns Transfers (B, C, W/C) (FIM): 5 Scootin Rollin Supine to/from Sit: 6 Sit to/from Stand: 5 Bed to/from Chair: 5 Gait Training Does the Patient Walk?: No and Walking Goal NOT indicated Wheelchair Training Does the Pt Use a Wheelchair?: Yes Wheelchair (FIM): 6 Wheelchair Distance: 3=150 ft Wheelchair Level of Assist: 6 Type of Wheelchair: Motorized pt. displays excellent skills in power chair in tight spaces and about room several times, backing forward and tight TRF situations Treatments Much discussion RE: TRFs and situation at home vs NH. Pt. TRFd this date sup to sit indep. Pt. with SOB in flat bed unable to lay bed flat for TRFs and manages back in to bed by lifting left leg with belt she manuevers with upper extrem. pt. also managed a very impressive TRF w/c to toilet with wide BSC over it and back all SBA. Pt had very small BM and needed only assist to clean Assessment Current Status: Good Progress has great routine and manages it well. all SBA to mod I except cleaning. Pt. is using zaman catheter at her request as she states she really gets the bed wet at night and uses multiple briefs so she prefers the zaman PT Short Term Goals Short Term Goals Time Frame: Nov 21, 2016 Gait (FIM): 0 Distance (FIM): 0=does not occure Wheelchair Distance: 300' PT Supervisor Of Instruction Goals Supervisor Of Instruction Goals PT Supervisor Of Instruction Goals Time Frame: Dec 05, 2016 Transfers (B,C,W/C) (FIM): 6 Sit to Lying (QC): 6 Lying-Sitting on Side/Bed(QC): 6 Sit to Stand (QC): 6 Rollin Roll Left to Right (QC): 6 Chair/Yrp-mp-Aptrp Xfer(QC): 6 Car Transfer (QC): 6 Does the Patient Walk: No and Walking Goal NOT indicated PT Plan Treatment/Plan Treatment Plan: Continue Plan of Care Treatment Plan: Bed Mobility, Education, Functional Activity Anita, Functional Strength, Group Therapy, Safety, Therapeutic Exercise, Transfers Treatment Duration: Dec 05, 2016 Frequency: At least 5-7 days/Wk (IRF) Estimated Hrs Per Day: 1.5 hours per day Patient and/or Family Agrees t: Yes Safety Risks/Education Patient Education: Transfer Techniques, Correct Positioning, W/C Management, Safety Issues Teaching Recipient: Patient Teaching Methods: Demonstration, Discussion Response to Teaching: Verbalize Understanding, Return Demonstration Time/GCodes Time In: 930 Time Out: 1030 Total Billed Treatment Time: 60 Total Billed Treatment 1,FA45m,WC15m G Codes Necessary: No MEE PHAN CROSS CUT SAWYER Nov 15, 2016 10:30
--- NOTE | 2016-11-15 10:39 | PM & R (SOAP) Progress Note ---
Subjective Time Seen by Provider: 07:50 Subjective/Events-last exam Patient was seen in her room this AM Patient SBA for transfers Discussed current meds with Pharm D again this AM Meds adjusted Accuchecks and other labs noted. Objective Exam Last Set of Vital Signs Vital Signs Date Time Temp Pulse Resp B/P (MAP) Pulse Ox O2 Delivery O2 Flow Rate FiO2 11/15/16 08:45 Room Air 11/15/16 05:08 98.9 67 16 134/62 92 3.00 Capillary Refill : I&O Intake and Output 11/15/16 23:59 Intake Total 100 ml Output Total 1400 ml Balance -1300 ml Intake Oral 100 ml Output Urine Total 1400 ml General: Alert, Oriented X3, Cooperative, No Acute Distress HEENT: Atraumatic, PERRLA, EOMI, Mucous Memb Moist/[place] Neck: Supple, No JVD Lungs: Clear to Auscultation Heart: Regular Rate Abdomen: Normal Bowel Sounds, Soft, No Tenderness Extremities: Other (RT BKA rssidual limb non tender small area of breakdown both legs covered with dressing) Skin: Other (as per above) Neuro: Other (Strength 2/5 RT Upper limb associated with edema Left Hip flex 2/ 5 Left Knee ext 5/5 Rt L extremity hip flex 2/5 sensation grossly intact to touch) Results Lab Laboratory Tests 11/13/16 20:13: Glucometer 168H 11/14/16 04:49: Glucometer 125H 11/14/16 07:36: White Blood Count 6.8, Red Blood Count 4.53, Hemoglobin 10.6L, Hematocrit 36, Mean Corpuscular Volume 80, Mean Corpuscular Hemoglobin 23L, Mean Corpuscular Hemoglobin Concent 29L, Red Cell Distribution Width 17.3H, Platelet Count 187, Mean Platelet Volume 10.1, Neutrophils (%) (Auto) 73, Lymphocytes (%) (Auto) 17 , Monocytes (%) (Auto) 7, Eosinophils (%) (Auto) 3, Basophils (%) (Auto) 0, Neutrophils # (Auto) 5.0, Lymphocytes # (Auto) 1.1, Monocytes # (Auto) 0.5, Eosinophils # (Auto) 0.2, Basophils # (Auto) 0.0, Sodium Level 144, Potassium Level 4.1, Chloride Level 105, Carbon Dioxide Level 30, Anion Gap 9, Blood Urea Nitrogen 18, Creatinine 1.12, Estimat Glomerular Filtration Rate 48, BUN/ Creatinine Ratio 16, Glucose Level 116H, Calcium Level 9.6, Total Bilirubin 0.4 , Aspartate Amino Transf (AST/SGOT) 18, Alanine Aminotransferase (ALT/SGPT) 23, Alkaline Phosphatase 58, Total Protein 6.4, Albumin 3.2 11/14/16 10:50: Glucometer 135H 11/14/16 16:24: Glucometer 75 11/14/16 20:13: Glucometer 121H 11/15/16 05:21: Glucometer 136H 11/15/16 08:16: Glucometer 225H Assessment/Plan Assessment General debil s/p sepsis due to UTI Mrsa wounds legs on contact precautions RT BKA old IDDM Morbid obesity MACIEL noncompliant with cpap on 02 at night HTN controlled with meds Plan Continue PT/OT Team Conference later today-See report for full functional update and POC and ELOS F/U with woundcare and DR Engel as their schedule MINOR COLÓN MD Nov 15, 2016 10:39
--- NOTE | 2016-11-15 10:45 | Occupational Ther Daily Note ---
OT Current Status-Daily Note Subjective Pt sitting EOB, agrees to treatment. Pt reports 6/10 right shoulder pain. Mental Status/Objective Functional [place] Measure 0=Not Assessed/NA 4=Minimal Assistance 1=Total Assistance 5=Supervision or Setup 2=Maximal Assistance 6=Modified [place] 3=Moderate Assistance 7=Complete [place] ADL-Treatment Pt agrees to sponge bath this morning. Pt transferred EOB to w/c with CGA. Pt to restroom via power w/c. Pt able to safely maneuver power w/c in small spaces. Sponge bath completed seated at sink. Pt able to wash upper body and upper legs with SBA. Assist required for lower legs and left foot. Don pullover dress with set up. Assist required to don left sock. Grooming tasks completed seated at sink. Pt brushed teeth and combed hair with modified independence while seated in w/c. Pt fatigues with activity and requests to return to bed after session. Transfer w/c to EOB with SBA. Pt able to reposition self in bed with SBA. All needs met after session. Functional [place] Measure 0=Not Assessed/NA 4=Minimal Assistance 1=Total Assistance 5=Supervision or Setup 2=Maximal Assistance 6=Modified [place] 3=Moderate Assistance 7=Complete IndependenceIRFPAI Quality Coding Scale 6 Independent with activity with or without an assistive device 5 Patient requires set up or clean up by helper. Patient completes activity by themselves 4 Supervision or touching assist (CGA). [place] provide cues , steadying assist 3 The helper provides less than half the effort to complete the activity 2 The helper provides more than half the effort to complete the activity 1 Dependent. The helper does all the effort to complete an activity 7 Patient refused to complete or attempt activity 9 The patient did not perform the activity before the current illness or injury 88 Not attempted due to Medical conditions or safety concerns Grooming (FIM): 6 Oral Hygiene (QC): 6 Upper Body (FIM): 5 Upper Body Dressing (QC): 5 On/Off Footwear (QC): 1 OT Short Term Goals Short Term Goals Time Frame: Nov 21, 2016 Bathing(FIM): 4 Upper Body Dressing(FIM): 5 Lower Body Dressing(FIM): 4 Toileting(FIM): 4 Toilet/Commode Transfer(FIM): 4 Shower Transfer(FIM): 4 Additional Short Term Goals: 1-Demonstrate ADL Tasks, 2-Verbalize Understanding , 3-ImproveStrength/Anita 1=Demonstrate adherence to instructed precautions during ADL tasks. 2=Patient will verbalize/demonstrate understanding of assistive devices/ modifications for ADL. 3=Patient will improve strength/tolerance for activity to enable patient to perform ADL's. OT Bag Presser Goals Fpc Goals Time Frame: Dec 05, 2016 Eating (FIM): 6 Eating (QC): 6 Groomin Oral Hygiene (QC): 6 Bathing(FIM): 5 Shower/Bathe Self (QC): 5 Upper Body Dressing(FIM): 6 Upper Body Dressing (QC): 6 Lower Body Dressing(FIM): 5 Lower Body Dressing (QC): 4 On/Off Footwear (QC): 5 Toileting(FIM): 6 Toileting Hygiene (QC): 6 Toilet/Commode Transfer(FIM): 6 Toilet/Commode Transfer (QC): 6 Shower Transfer(FIM): 5 Additional Goals: 1-Demonstrate ADL Tasks, 2-Verbalize Understanding, 3- ImproveStrength/Anita 1=Demonstrate adherence to instructed precautions during ADL tasks. 2=Patient will verbalize/demonstrate understanding of assistive devices/ modifications for ADL. 3=Patient will improve strength/tolerance for activity to enable patient to perform ADL's. OT Education/Plan Problem List/Assessment Pt to benefit from skilled OT intervention for ADL training, transfers, strengthening, and home safety education to increase level of function and allow safe return home. Discharge Recommendations Plan/Recommendations: Continue POC Treatment Plan/Plan of Care Patient would benefit from OT for education, treatment and training to promote independence in ADL's, mobility, safety and/or upper extremity function for ADL' s. Plan of Care: ADL Retraining, Functional Mobility, Group Exercise/Act as Ind, UE Funct Exercise/Act Treatment Duration: Dec 05, 2016 Frequency: At least 5-7 days/Wk (IRF) Estimated Hrs Per Day: 1.5 hours per day Agreement: Yes Rehab Potential: Fair Time/GCodes Start Time: 08:00 Stop Time: 09:05 Total Time Billed (hr/min): 65 Billed Treatment Time 1 visit, ADLx4(65minutes) ZAHIDA QUINTERO OT Nov 15, 2016 10:45
--- NOTE | 2016-11-15 11:44 | Occupational Ther Daily Note ---
OT Current Status-Daily Note Subjective Pt sitting in w/c, agrees to treatment. Mental Status/Objective Functional [place] Measure 0=Not Assessed/NA 4=Minimal Assistance 1=Total Assistance 5=Supervision or Setup 2=Maximal Assistance 6=Modified [place] 3=Moderate Assistance 7=Complete [place] ADL-Treatment Functional [place] Measure 0=Not Assessed/NA 4=Minimal Assistance 1=Total Assistance 5=Supervision or Setup 2=Maximal Assistance 6=Modified [place] 3=Moderate Assistance 7=Complete IndependenceIRFPAI Quality Coding Scale 6 Independent with activity with or without an assistive device 5 Patient requires set up or clean up by helper. Patient completes activity by themselves 4 Supervision or touching assist (CGA). [place] provide cues , steadying assist 3 The helper provides less than half the effort to complete the activity 2 The helper provides more than half the effort to complete the activity 1 Dependent. The helper does all the effort to complete an activity 7 Patient refused to complete or attempt activity 9 The patient did not perform the activity before the current illness or injury 88 Not attempted due to Medical conditions or safety concerns Other Treatment Pt requested to return to bed. Pt able to maneuver power w/c to EOB. Pt transferred w/c to EOB with SBA by scooting without use of slide board. Pt requires increased time to position self in bed. Pt performed UE exercises to promote increased strength needed for ADLs and transfers. Pt performed left shoulder flexion, abduction, biceps curls, and wrist flex/ext x15 reps with 2# weight. Rest breaks between exercises. Pt performed right UE self AAROM to tolerance for shoulder flexion and elbow flex/ ext. ROM is limited secondary to pain. Pt resting in bed with needs met after session. OT Short Term Goals Short Term Goals Time Frame: Nov 21, 2016 Bathing(FIM): 4 Upper Body Dressing(FIM): 5 Lower Body Dressing(FIM): 4 Toileting(FIM): 4 Toilet/Commode Transfer(FIM): 4 Shower Transfer(FIM): 4 Additional Short Term Goals: 1-Demonstrate ADL Tasks, 2-Verbalize Understanding , 3-ImproveStrength/Anita 1=Demonstrate adherence to instructed precautions during ADL tasks. 2=Patient will verbalize/demonstrate understanding of assistive devices/ modifications for ADL. 3=Patient will improve strength/tolerance for activity to enable patient to perform ADL's. OT Adjuster And Inspector Goals Senior Care Goals Time Frame: Dec 05, 2016 Eating (FIM): 6 Eating (QC): 6 Groomin Oral Hygiene (QC): 6 Bathing(FIM): 5 Shower/Bathe Self (QC): 5 Upper Body Dressing(FIM): 6 Upper Body Dressing (QC): 6 Lower Body Dressing(FIM): 5 Lower Body Dressing (QC): 4 On/Off Footwear (QC): 5 Toileting(FIM): 6 Toileting Hygiene (QC): 6 Toilet/Commode Transfer(FIM): 6 Toilet/Commode Transfer (QC): 6 Shower Transfer(FIM): 5 Additional Goals: 1-Demonstrate ADL Tasks, 2-Verbalize Understanding, 3- ImproveStrength/Anita 1=Demonstrate adherence to instructed precautions during ADL tasks. 2=Patient will verbalize/demonstrate understanding of assistive devices/ modifications for ADL. 3=Patient will improve strength/tolerance for activity to enable patient to perform ADL's. OT Education/Plan Problem List/Assessment Pt to benefit from skilled OT intervention for ADL training, transfers, strengthening, and home safety education to increase level of function and allow safe return home. Discharge Recommendations Plan/Recommendations: Continue POC Treatment Plan/Plan of Care Patient would benefit from OT for education, treatment and training to promote independence in ADL's, mobility, safety and/or upper extremity function for ADL' s. Plan of Care: ADL Retraining, Functional Mobility, Group Exercise/Act as Ind, UE Funct Exercise/Act Treatment Duration: Dec 05, 2016 Frequency: At least 5-7 days/Wk (IRF) Estimated Hrs Per Day: 1.5 hours per day Agreement: Yes Rehab Potential: Fair Time/GCodes Start Time: 11:10 Stop Time: 11:35 Total Time Billed (hr/min): 25 Billed Treatment Time 1 visit, FA(10minutes), EX(15minutes) ZAHIDA QUINTERO OT Nov 15, 2016 11:44
--- NOTE | 2016-11-15 14:13 | Physical Therapy Daily Note ---
PT Daily Note-Current Subjective Pt. states she really wants to go to [place] but feels like she wont be able to b/c her andre will have to give up the house if she goes on Medicaid. Catheter will likely be DCd today and pt is contemplating management of her urine as she has incontinence Pain Numeric Pain Scale: 0-No Pain Transfers Functional [place] Measure 0=Not Assessed/NA 4=Minimal Assistance 1=Total Assistance 5=Supervision or Setup 2=Maximal Assistance 6=Modified [place] 3=Moderate Assistance 7=Complete IndependenceIRFPAI Quality Coding Scale 6 Independent with activity with or without an assistive device 5 Patient requires set up or clean up by helper. Patient completes activity by themselves 4 Supervision or touching assist (CGA). [place] provide cues , steadying assist 3 The helper provides less than half the effort to complete the activity 2 The helper provides more than half the effort to complete the activity 1 Dependent. The helper does all the effort to complete an activity 7 Patient refused to complete or attempt activity 9 The patient did not perform the activity before the current illness or injury 88 Not attempted due to Medical conditions or safety concerns Exercises Supine Ex: LE Protocol, Bridging, Ankle pumps, Quad Set, Rolling, Glut sets, Heel Slides, Short Arc Quads, Scooting, Straight leg raise, Hip abd/add Supine Reps: 15 Assessment Current Status: Good Progress good progress, does well with TRFs and ther ex PT Short Term Goals Short Term Goals Time Frame: Nov 21, 2016 Gait (FIM): 0 Distance (FIM): 0=does not occure Wheelchair Distance: 300' PT Correction Goals Drill Punch Operator Goals PT Correction Goals Time Frame: Dec 05, 2016 Transfers (B,C,W/C) (FIM): 6 Sit to Lying (QC): 6 Lying-Sitting on Side/Bed(QC): 6 Sit to Stand (QC): 6 Rollin Roll Left to Right (QC): 6 Chair/Hra-mu-Mpjjr Xfer(QC): 6 Car Transfer (QC): 6 Does the Patient Walk: No and Walking Goal NOT indicated PT Plan Treatment/Plan Treatment Plan: Continue Plan of Care Treatment Plan: Bed Mobility, Education, Functional Activity Anita, Functional Strength, Group Therapy, Safety, Therapeutic Exercise, Transfers Treatment Duration: Dec 05, 2016 Frequency: At least 5-7 days/Wk (IRF) Estimated Hrs Per Day: 1.5 hours per day Patient and/or Family Agrees t: Yes Time/GCodes Time In: 1335 Time Out: 1405 Total Billed Treatment Time: 30 Total Billed Treatment 1,EX30m G Codes Necessary: No MEE PHAN ACTIVE DIRECTORY ENGINEER Nov 15, 2016 14:13
[2016-11-15] MEDS: DICLOFENAC 1% GEL 100 GM (VOLTAREN) TUBE TP PRN (14:32)
[2016-11-15] MEDS: RIVAROXABAN 20 MG TABLET (XARELTO) PO SCH (17:12)
--- NOTE | 2016-11-15 17:40 | Individualized Plan of Care ---
Individualized Plan of Care Rehab Nursing IPOC Order Admission Date Nov 13, 2016 at 17:54 Current Orders Orders Cyclobenzaprine Tablet (Flexeril Tablet) (11/15/16 21:00) Cyclobenzaprine Tablet (Flexeril Tablet) (11/15/16 08:15) Diclofenac 1% Gel (Voltaren 1% Gel) (11/15/16 13:45) Nursing Communication (Patient (11/15/16 14:27) Patient Visit (11/15/16 ) Functional Activities, Ea 15 (11/15/16 ) Wheelchair Mgmt/Propulsn 15min (11/15/16 ) Exercise Therap, Ea 15 Min (11/15/16 ) Rehab Nursing Orders: Diseage Management, Edu in Press Rel Techn, Hydration Management, Nutrition Management, Pain Management Other Nursing Orders: D/C zaman and monitor for urinary retention Patient wears pad at home Treat PT IPOC Problem List: Activity Tolerance, Functional Strength, Safety, Balance, Transfer, Bed Mobility, ROM Treatment Plan: Continue Plan of Care Bed Mobility, Education, Functional Activity Anita, Functional Strength, Group Therapy, Safety, Therapeutic Exercise, Transfers Treatment Duration: Dec 05, 2016 Frequency: At least 5-7 days/Wk (IRF) Estimated Hrs Per Day: 1.5 hours per day OT IPOC Problems: Decreased Activ Tolerance, Decreased UE Strength, Dependent Transfers , Impaired I ADL's, Impaired Self-Care Skills OT Problems Pt to benefit from skilled OT intervention for ADL training, transfers, strengthening, and home safety education to increase level of function and allow safe return home. Plan of Care: ADL Retraining, Functional Mobility, Group Exercise/Act as Ind, UE Funct Exercise/Act Treatment Duration: Dec 05, 2016 Frequency: At least 5-7 days/Wk (IRF) Estimated Hrs Per Day: 1.[address] IPOC Speech Therapy Treatment Plan: Discontinue ST Frequency: Modified Program (IRF) Estimated Hrs Per Day: .25 hour per day (Evaluation, only.) Physician IPOC Medical Issues being managed closely and that require the 24 hour availability of a physician:IDDM,Diabetic foot ulcers HTN MACIEL on 02 at HS morbid obesity Pain management Medical Issues: Bowel/Bladder Function, DVT Prophylaxis, Falls Precautions, Fluid/Electrolyte/Nutrition Balance, Infection Protection, Pain Management, Wound Care, Other (List) (as per above) Brief Synthesis of Preadmission Screen, Post-Admission Evaluation, and Therapy Evaluations:71 yo female who had been Modifeid Independent at the [facility] w/c prior to Sepsis due to UTI treated at [facility] Has prior rt BKA and did not use Prosthesis for mobility and has MACIEL but doesnt use her CPAP uses 02 by N./C at night PMH IDDM and diabetic foot ulcers as well as morbid obesity and chronic arthritic pain and HTN Lives with her daughter who works fulltime in a [employer] in [facility] Medical Prognosis: good Anticipated Length of Stay: 9-12-17 Rehab Goals Modified Independent for adls and mobility skills at the w/c level Patient has brought her Power w/c with her and is Independent with it for mobility Anticipated discharge destinat: Home with her daughter and [facility] MINOR COLÓN MD Nov 15, 2016 17:40
[2016-11-15 18:00] VITALS: BP 130/61
[2016-11-15 21:18] VITALS: BP 137/71
[2016-11-15] MEDS: ATORVASTATIN 40 MG (LIPITOR) TABLET PO SCH (21:20)
[2016-11-15] MEDS: CYCLOBENZAPRINE 10 MG (FLEXERIL) TAB PO SCH (21:20)
--- NOTE | 2016-11-15 22:26 | Wound Care Progress Note ---
Subjective Subjective Subjective/Events-last exam 71 year old female with diminished mobility due to R BKA, previous stroke and obesity in a setting of recent pneumonia, with pressure ulcer of R buttock. The problem is exacerbated by urinary incontinence. Moderate pain in wound. PMH: DM, HTN, CRF, CHF, previous stroke. Review of Systems Date Seen by Provider: Nov 15, 2016 Time Seen by Provider: 18:30 General: Fatigue Pulmonary: No Dyspnea Cardiovascular: No: Chest Pain Genitourinary: Incontinence Musculoskeletal: shoulder pain, arm pain Objective Exam Last Set of Vital Signs Vital Signs Date Time Temp Pulse Resp B/P (MAP) Pulse Ox O2 Delivery O2 Flow Rate FiO2 11/15/16 21:18 64 137/71 11/15/16 19:23 Nasal Cannula 3.00 11/15/16 18:00 97.4 20 97 Capillary Refill : I&O Intake and Output 11/16/16 00:00 Intake Total 700 ml Output Total 2200 ml Balance -1500 ml Intake Oral 700 ml Output Urine Total 2200 ml # Voids 2 General: Alert, No Acute Distress Lungs: Normal Air Movement Skin: Other (R butock -- 1.5 x 1.4 x 0.1 cm, 10% slough, 90% regenerating tissue. mod. s.s. drainage.) Results Lab Laboratory Tests 11/15/16 05:21: Glucometer 136H 11/15/16 08:16: Glucometer 225H 11/15/16 10:59: Glucometer 162H 11/15/16 16:50: Glucometer 159H 11/15/16 20:39: Glucometer 183H Assessment/Plan Assessment/Plan Assessment/Plan 1. Pressure ulcer, R buttock, unstageable. 2. Urinary incontinence with MASD. Plan: will change to barrier cream to buttocks area. Unidecylenic acid to lichenification of R foot. PITO PEREZ MD Nov 15, 2016 22:26
[2016-11-16] MEDS: HYDROcodone/APAP 5 MG/325 MG (LORTAB) TAB PO PRN ×3 (00:17→22:02)
[2016-11-16] MEDS: DICLOFENAC 1% GEL 100 GM (VOLTAREN) TUBE TP PRN ×3 (00:17→22:02)
[2016-11-16 06:34] VITALS: BP 108/47
--- NOTE | 2016-11-16 08:33 | Progress Note (SOAP) ---
Subjective Time Seen by Provider: 08:30 Subjective/Events-last exam debility. Diabetes. BKA. patient needs dry kiln worker. Patient feel she is doing better Objective Exam Vital Signs Date Time Temp Pulse Resp B/P (MAP) Pulse Ox O2 Delivery O2 Flow Rate FiO2 11/16/16 07:27 92 Nasal Cannula 3.00 11/16/16 06:34 98.5 65 20 108/47 97 Nasal Cannula 3.00 11/15/16 21:18 64 137/71 11/15/16 21:00 Nasal Cannula 3.00 11/15/16 19:23 Nasal Cannula 3.00 11/15/16 18:00 97.4 71 20 130/61 97 Nasal Cannula 3.00 11/15/16 08:45 Room Air Capillary Refill : General Appearance: No Apparent Distress, WD/WN, Obese HEENT: Normal ENT Inspection Neck: Full Range of Motion, Normal Inspection Results Lab Laboratory Tests 11/15/16 10:59: Glucometer 162H 11/15/16 16:50: Glucometer 159H 11/15/16 20:39: Glucometer 183H 11/16/16 05:18: Glucometer 148H Assessment/Plan Assessment/Plan Assess & Plan/Chief Complaint debility. Insulin-dependent diabetic. Obesity. COPD. Right BKA. Renal insufficiency.. History of UTI with sepsis. Previous history of pneumonia. . 11/15/16. Debility. Insulin-dependent diabetes UTI with sepsis. Previous pneumonia. Previous atrial fib resolve by IV medicine. . . Debility. Insulin-dependent diabetic. UTI. Previous A. fib. BKA. Patient needs to see dry kiln worker.. Diabetes under control Clinical Quality Measures DVT/VTE Risk/Contraindication: Risk Factor Score Per Nursin RFS Level Per Nursing on Admit: 4+=Very High ANNI SANTOS DO Nov 16, 2016 08:33
[2016-11-16 08:39] VITALS: BP 133/34
[2016-11-16] MEDS: CIPROFLOXACIN 500 MG (CIPRO) TABLET PO SCH ×2 (08:40→21:09)
[2016-11-16] MEDS: inSUlin DETERMIR 1 UNIT/0.01 ML (LEVEMIR) CHARGE PER UNIT SQ SCH ×2 (08:40→21:09)
[2016-11-16] MEDS: KCL 20 MEQ TAB (K-DUR) PO SCH (08:40)
[2016-11-16] MEDS: CARVEDILOL 12.5 MG (COREG) TABLET PO SCH ×2 (08:40→21:09)
[2016-11-16] MEDS: amLODIPine 10 MG (NORVASC) TAB PO SCH (08:40)
[2016-11-16] MEDS: FUROSEMIDE 40 MG (LASIX) TAB PO SCH (08:40)
[2016-11-16] MEDS: ISOSORBIDE MONONITRATE 30 MG (IMDUR) TAB PO SCH (08:40)
[2016-11-16] MEDS: DILTIAZEM 180 MG (CARDIZEM CD) CAP PO SCH (08:40)
[2016-11-16] MEDS: SPIRONOLACTONE 25 MG (ALDACTONE) TAB PO SCH (08:40)
--- NOTE | 2016-11-16 09:06 | PM & R (SOAP) Progress Note ---
Subjective Time Seen by Provider: 07:45 Subjective/Events-last exam Patient was seen in her room this AM Fatiqued due to Lester catheter being removed and frequent urination last night Patient SBA for transfers Patient would like to go to SNU from here but patient through most of her skilled days. Objective Exam Last Set of Vital Signs Vital Signs Date Time Temp Pulse Resp B/P (MAP) Pulse Ox O2 Delivery O2 Flow Rate FiO2 11/16/16 08:39 68 133/34 11/16/16 07:27 92 Nasal Cannula 3.00 11/16/16 06:34 98.5 20 Capillary Refill : I&O Intake and Output 11/17/16 00:00 Intake Total 100 ml Balance 100 ml Intake Oral 100 ml # Voids 2 General: Alert, No Acute Distress HEENT: Atraumatic, PERRLA, EOMI, Mucous Memb Moist/[place] Neck: Supple, No JVD Lungs: Normal Air Movement Heart: Regular Rate Abdomen: Normal Bowel Sounds, Soft, No Tenderness Extremities: Other (RT BKA rssidual limb non tender small area of breakdown both legs covered with dressing) Skin: Other (R butock -- 1.5 x 1.4 x 0.1 cm, 10% slough, 90% regenerating tissue. mod. s.s. drainage.) Neuro: Other (Strength 2/5 RT Upper limb associated with edema Left Hip flex 2/ 5 Left Knee ext 5/5 Rt L extremity hip flex 2/5 sensation grossly intact to touch) Results Lab Laboratory Tests 11/13/16 20:13: Glucometer 168H 11/14/16 04:49: Glucometer 125H 11/14/16 07:36: White Blood Count 6.8, Red Blood Count 4.53, Hemoglobin 10.6L, Hematocrit 36, Mean Corpuscular Volume 80, Mean Corpuscular Hemoglobin 23L, Mean Corpuscular Hemoglobin Concent 29L, Red Cell Distribution Width 17.3H, Platelet Count 187, Mean Platelet Volume 10.1, Neutrophils (%) (Auto) 73, Lymphocytes (%) (Auto) 17 , Monocytes (%) (Auto) 7, Eosinophils (%) (Auto) 3, Basophils (%) (Auto) 0, Neutrophils # (Auto) 5.0, Lymphocytes # (Auto) 1.1, Monocytes # (Auto) 0.5, Eosinophils # (Auto) 0.2, Basophils # (Auto) 0.0, Sodium Level 144, Potassium Level 4.1, Chloride Level 105, Carbon Dioxide Level 30, Anion Gap 9, Blood Urea Nitrogen 18, Creatinine 1.12, Estimat Glomerular Filtration Rate 48, BUN/ Creatinine Ratio 16, Glucose Level 116H, Calcium Level 9.6, Total Bilirubin 0.4 , Aspartate Amino Transf (AST/SGOT) 18, Alanine Aminotransferase (ALT/SGPT) 23, Alkaline Phosphatase 58, Total Protein 6.4, Albumin 3.2 11/14/16 10:50: Glucometer 135H 11/14/16 16:24: Glucometer 75 11/14/16 20:13: Glucometer 121H 11/15/16 05:21: Glucometer 136H 11/15/16 08:16: Glucometer 225H 11/15/16 10:59: Glucometer 162H 11/15/16 16:50: Glucometer 159H 11/15/16 20:39: Glucometer 183H 11/16/16 05:18: Glucometer 148H Assessment/Plan Assessment General debil s/p sepsis due to UTI Mrsa wounds legs on contact precautions RT BKA old IDDM Morbid obesity MACIEL noncompliant with cpap on 02 at night HTN controlled with meds Urinary frequency-monitor for retention. Plan Continue PT/OT Team Conference held yesterday-See report for full functional update and POC and ELOS F/U with woundcare and DR Luna as their schedule Dr luna indicates that Patient neede Podiatry consult-will folow-up MINOR COLÓN MD Nov 16, 2016 09:05
--- NOTE | 2016-11-16 09:27 | Occupational Ther Daily Note ---
OT Current Status-Daily Note Subjective Pt sleeping in bed. Wakes up, agrees to therapy. C/o R shoulder pain, ointment applied. Pt did not rate pain. Mental Status/Objective Patient Orientation: Person, Place, Time, Situation Functional [place] Measure 0=Not Assessed/NA 4=Minimal Assistance 1=Total Assistance 5=Supervision or Setup 2=Maximal Assistance 6=Modified [place] 3=Moderate Assistance 7=Complete [place] Attachments: Oxygen (On when OT walked into room. Pt took it off to complete ADLs.) ADL-Treatment Pt was able to go from supine to sitting EOB with CGA. Sat EOB by self. Pt was able to transfer from bed to motorized w/c by self. Pt declined shower stating that she was not able to transfer into shower. Pt completed sponge bath while seated in power w/c at sink. Pt able to wash upper body and upper legs with SBA requiring assistance washing L lower leg and foot. Pt able to don dress after retrieving from bag. Pt required assistance applying lotion to L lower leg and foot for skin dryness. Pt able brush teeth and hair while seated at sink in power w/c. Pt completed oral hygiene while seated at sink in power w/ c. Pt was incontinent then required max A for toileting. Completed lower body dressing lying in bed, pt required assist to pull down over hips then was able to push down legs. Assist to don over L foot then pt pulled briefs up legs then assist to hike over hips. Pt lying in bed to eat breakfast. Pt was able to open package/containers by self then use regular utensils to cut food and feed self. After therapy, pt lying in bed with call light/phone in reach. All needs met in room. Functional [place] Measure 0=Not Assessed/NA 4=Minimal Assistance 1=Total Assistance 5=Supervision or Setup 2=Maximal Assistance 6=Modified [place] 3=Moderate Assistance 7=Complete IndependenceIRFPAI Quality Coding Scale 6 Independent with activity with or without an assistive device 5 Patient requires set up or clean up by helper. Patient completes activity by themselves 4 Supervision or touching assist (CGA). [place] provide cues , steadying assist 3 The helper provides less than half the effort to complete the activity 2 The helper provides more than half the effort to complete the activity 1 Dependent. The helper does all the effort to complete an activity 7 Patient refused to complete or attempt activity 9 The patient did not perform the activity before the current illness or injury 88 Not attempted due to Medical conditions or safety concerns Eating (FIM): 6 Eating (QC): 6 Grooming (FIM): 6 Oral Hygiene (QC): 6 Bathing (FIM): 3 Bathing Location: L Arm, R Arm, L Upper Leg, R Upper Leg, Chest, Abdomen Upper Body (FIM): 6 Lower Body Dressing (FIM): 2 Toileting (FIM): 2 Toileting Hygiene (QC): 2 OT Short Term Goals Short Term Goals Time Frame: Nov 21, 2016 Bathing(FIM): 4 Upper Body Dressing(FIM): 5 Lower Body Dressing(FIM): 4 Toileting(FIM): 4 Toilet/Commode Transfer(FIM): 4 Shower Transfer(FIM): 4 Additional Short Term Goals: 1-Demonstrate ADL Tasks, 2-Verbalize Understanding , 3-ImproveStrength/Anita 1=Demonstrate adherence to instructed precautions during ADL tasks. 2=Patient will verbalize/demonstrate understanding of assistive devices/ modifications for ADL. 3=Patient will improve strength/tolerance for activity to enable patient to perform ADL's. OT Senior Living Goals Senior Living Goals Time Frame: Dec 05, 2016 Eating (FIM): 6 Eating (QC): 6 Groomin Oral Hygiene (QC): 6 Bathing(FIM): 5 Shower/Bathe Self (QC): 5 Upper Body Dressing(FIM): 6 Upper Body Dressing (QC): 6 Lower Body Dressing(FIM): 5 Lower Body Dressing (QC): 4 On/Off Footwear (QC): 5 Toileting(FIM): 6 Toileting Hygiene (QC): 6 Toilet/Commode Transfer(FIM): 6 Toilet/Commode Transfer (QC): 6 Shower Transfer(FIM): 5 Additional Goals: 1-Demonstrate ADL Tasks, 2-Verbalize Understanding, 3- ImproveStrength/Anita 1=Demonstrate adherence to instructed precautions during ADL tasks. 2=Patient will verbalize/demonstrate understanding of assistive devices/ modifications for ADL. 3=Patient will improve strength/tolerance for activity to enable patient to perform ADL's. OT Education/Plan Problem List/Assessment Pt to benefit from skilled OT intervention for ADL training, transfers, strengthening, and home safety education to increase level of function and allow safe return home. Discharge Recommendations Plan/Recommendations: Continue POC Treatment Plan/Plan of Care Patient would benefit from OT for education, treatment and training to promote independence in ADL's, mobility, safety and/or upper extremity function for ADL' s. Plan of Care: ADL Retraining, Functional Mobility, Group Exercise/Act as Ind, UE Funct Exercise/Act Treatment Duration: Dec 05, 2016 Frequency: At least 5-7 days/Wk (IRF) Estimated Hrs Per Day: 1.5 hours per day Agreement: Yes Rehab Potential: Fair Time/GCodes Start Time: 08:00 Stop Time: 09:30 Total Time Billed (hr/min): 90 Billed Treatment Time 1 visit-ADL 6 (90 min) PARAS NUNES Nov 16, 2016 09:26
[2016-11-16] MEDS: inSUlin ASPART (NovoLOG) 1 UNIT/0.01 ML (CHARGE PER UNIT) SC SCH ×3 (10:08→17:27)
--- NOTE | 2016-11-16 11:00 | Physical Therapy Daily Note ---
PT Daily Note-Current Subjective Pt was lying in bed prior to tx and agreeable to PT. Pt was positioned on side with pillows between knees in bed with nurse call, phone, tray, all needs in reach. Pain Numeric Pain Scale: 7 Location Body Site: Arm Pain Description: Ache Comment: Right arm is painful, received pain meds prior to tx. Mental Status Patient Orientation: Normal For Age Transfers Functional [place] Measure 0=Not Assessed/NA 4=Minimal Assistance 1=Total Assistance 5=Supervision or Setup 2=Maximal Assistance 6=Modified [place] 3=Moderate Assistance 7=Complete IndependenceIRFPAI Quality Coding Scale 6 Independent with activity with or without an assistive device 5 Patient requires set up or clean up by helper. Patient completes activity by themselves 4 Supervision or touching assist (CGA). [place] provide cues , steadying assist 3 The helper provides less than half the effort to complete the activity 2 The helper provides more than half the effort to complete the activity 1 Dependent. The helper does all the effort to complete an activity 7 Patient refused to complete or attempt activity 9 The patient did not perform the activity before the current illness or injury 88 Not attempted due to Medical conditions or safety concerns Transfers (B, C, W/C) (FIM): 6 Scootin Rollin Supine to/from Sit: 6 Pt is mod I with all bed mobility. Uses trapeze for positioning in bed. Gait Training Does the Patient Walk?: No and Walking Goal NOT indicated Exercises Supine Ex: Ankle pumps, Quad Set, Rolling, Glut sets, Heel Slides, Straight leg raise, Hip abd/add Supine Reps: 20 Seated Therapy Exercises: Hip flexion, Glut set Seated Reps: 20 Treatments Pt completed supine exercises and rolling in bed to increase functional strengthening and mobility. Pt was seated on edge of bed for 10 minutes, completed weight shifting and seated exercises for balance and trunk strengthening. Assessment Current Status: Good Progress Pt completed all exercises with supervision for safety. Pt required support lifting left leg with SLR. PT Short Term Goals Short Term Goals Time Frame: Nov 21, 2016 Gait (FIM): 0 Distance (FIM): 0=does not occure Wheelchair Distance: 300' PT Halfway Goals Public Health Nutritionist Goals PT Public Health Nutritionist Goals Time Frame: Dec 05, 2016 Transfers (B,C,W/C) (FIM): 6 Sit to Lying (QC): 6 Lying-Sitting on Side/Bed(QC): 6 Sit to Stand (QC): 6 Rollin Roll Left to Right (QC): 6 Chair/Qtr-hd-Dqhnq Xfer(QC): 6 Car Transfer (QC): 6 Does the Patient Walk: No and Walking Goal NOT indicated PT Plan Problem List Problem List: Activity Tolerance, Functional Strength, Safety, Balance, Transfer, Bed Mobility, ROM Treatment/Plan Treatment Plan: Continue Plan of Care Treatment Plan: Bed Mobility, Education, Functional Activity Anita, Functional Strength, Group Therapy, Safety, Therapeutic Exercise, Transfers Treatment Duration: Dec 05, 2016 Frequency: At least 5-7 days/Wk (IRF) Estimated Hrs Per Day: 1.5 hours per day Patient and/or Family Agrees t: Yes Safety Risks/Education Patient Education: Reviewed Precautions, Correct Positioning, Safety Issues Teaching Recipient: Patient Teaching Methods: Demonstration, Discussion Response to Teaching: Verbalize Understanding, Reinforcement Needed Time/GCodes Time In: 1000 Time Out: 1100 Total Billed Treatment Time: 60 Total Billed Treatment 1 visit 15 FA 45 DARION BARRAZA PT Nov 16, 2016 11:00
[2016-11-16] MEDS: MENTHOL/ZINC OXIDE (CALMOSEPTINE) 113 GM TUBE TOP SCH ×2 (12:28→21:10)
--- NOTE | 2016-11-16 14:46 | Physical Therapy Daily Note ---
PT Daily Note-Current Subjective Pt is napping in bed prior to tx and agreeable to PT. Pt is sitting on toilet post-tx and is instructed to push nurse call when she is finished using toilet. Pain Numeric Pain Scale: 7 Location Body Site: Arm (right ) Pain Description: Ache Mental Status Patient Orientation: Normal For Age Attachments: Oxygen uses oxygen at night and as needed throughout day. Is on 2L oxygen during PT. Transfers Functional [place] Measure 0=Not Assessed/NA 4=Minimal Assistance 1=Total Assistance 5=Supervision or Setup 2=Maximal Assistance 6=Modified [place] 3=Moderate Assistance 7=Complete IndependenceIRFPAI Quality Coding Scale 6 Independent with activity with or without an assistive device 5 Patient requires set up or clean up by helper. Patient completes activity by themselves 4 Supervision or touching assist (CGA). [place] provide cues , steadying assist 3 The helper provides less than half the effort to complete the activity 2 The helper provides more than half the effort to complete the activity 1 Dependent. The helper does all the effort to complete an activity 7 Patient refused to complete or attempt activity 9 The patient did not perform the activity before the current illness or injury 88 Not attempted due to Medical conditions or safety concerns Transfers (B, C, W/C) (FIM): 2 Scootin Rollin Supine to/from Sit: 5 Bed to/from Chair: 5 (transfer bed to chair to commode with SBA, slow with transfer and takes extra time. ) Pt requires total assist to scoot to head of bed. Pt is mod I in all other bed mobility and uses trapeze and bed rails for support. Gait Training Does the Patient Walk?: No and Walking Goal NOT indicated Exercises Supine Ex: Ankle pumps, Quad Set, Rolling, Glut sets, Heel Slides, Scooting, Straight leg raise, Hip abd/add Supine Reps: 12 Treatments Pt completes rolling and supine exercises to increase functional strength and increase independence in mobility. Assessment Current Status: Good Progress Pt is slow with bed to wheelchair transfer due to pain and less movement with right arm but completes with SBA, PT positions wheelchair by bed prior to transfer. PT Short Term Goals Short Term Goals Time Frame: Nov 21, 2016 Gait (FIM): 0 Distance (FIM): 0=does not occure Wheelchair Distance: 300' PT Hand Coremaker Goals [facility]cf Goals PT Hand Coremaker Goals Time Frame: Dec 05, 2016 Transfers (B,C,W/C) (FIM): 6 Sit to Lying (QC): 6 Lying-Sitting on Side/Bed(QC): 6 Sit to Stand (QC): 6 Rollin Roll Left to Right (QC): 6 Chair/Mzc-ne-Nwqxk Xfer(QC): 6 Car Transfer (QC): 6 Does the Patient Walk: No and Walking Goal NOT indicated PT Plan Problem List Problem List: Activity Tolerance, Functional Strength, Safety, Balance, Transfer, Bed Mobility, ROM Treatment/Plan Treatment Plan: Continue Plan of Care Treatment Plan: Bed Mobility, Education, Functional Activity Anita, Functional Strength, Group Therapy, Safety, Therapeutic Exercise, Transfers Treatment Duration: Dec 05, 2016 Frequency: At least 5-7 days/Wk (IRF) Estimated Hrs Per Day: 1.5 hours per day Patient and/or Family Agrees t: Yes Safety Risks/Education Patient Education: Transfer Techniques, Reviewed Precautions, Correct Positioning, W/C Management, Safety Issues Teaching Recipient: Patient Teaching Methods: Demonstration, Discussion Response to Teaching: Verbalize Understanding, Reinforcement Needed Time/GCodes Time In: 1400 Time Out: 1440 Total Billed Treatment Time: 40 Total Billed Treatment 1 visit 25 EX 15 FA PARAS MARTINEZ PT Nov 16, 2016 14:46
[2016-11-16] MEDS: CYCLOBENZAPRINE 10 MG (FLEXERIL) TAB PO PRN (14:58)
[2016-11-16] MEDS: KETOCONAZOLE 2% CREAM 15 GM (NIZORAL) TOP SCH ×2 (16:52→21:09)
[2016-11-16] MEDS: RIVAROXABAN 20 MG TABLET (XARELTO) PO SCH (17:27)
--- NOTE | 2016-11-16 17:28 | Podiatry Progress Note ---
Standard Progress Note Progress Notes/Assess & Plan Date Seen by Provider: Nov 16, 2016 Time Seen by Provider: 17:26 Progress/Assessment & Plan Consult dictated. Foot care given. Dx: Diabetic Neuropathy, Onychomycosis, PVD, Plan: Foot care given. Recommend heel pressure precautions. Final Diagnosis Diabetic Neuropathy, Onychomycosis, PVD, NANCY MORALES DPM Nov 16, 2016 17:28
[2016-11-16 18:53] VITALS: BP 115/70
[2016-11-16] MEDS: ATORVASTATIN 40 MG (LIPITOR) TABLET PO SCH (21:09)
[2016-11-16] MEDS: CYCLOBENZAPRINE 10 MG (FLEXERIL) TAB PO SCH (21:09)
[2016-11-17 05:51] VITALS: BP 109/62
[2016-11-17] MEDS: inSUlin ASPART (NovoLOG) 1 UNIT/0.01 ML (CHARGE PER UNIT) SC SCH ×3 (06:41→18:03)
--- NOTE | 2016-11-17 08:25 | Progress Note (SOAP) ---
Subjective Time Seen by Provider: 08:20 Subjective/Events-last exam debility. Insomnia diabetes. BKA. Objective Exam Vital Signs Date Time Temp Pulse Resp B/P (MAP) Pulse Ox O2 Delivery O2 Flow Rate FiO2 11/17/16 05:51 98.4 63 20 109/62 91 Nasal Cannula 3.00 11/16/16 21:45 Nasal Cannula 3.00 11/16/16 20:55 Nasal Cannula 3.00 11/16/16 18:53 96.7 60 16 115/70 91 11/16/16 09:00 Room Air 11/16/16 08:39 68 133/34 Capillary Refill : General Appearance: No Apparent Distress, WD/WN Neck: Full Range of Motion Respiratory: Chest Non Tender, No Accessory Muscle Use, No Respiratory Distress Cardiovascular: Regular Rate, Rhythm Results Lab Laboratory Tests 11/16/16 11:12: Glucometer 217H 11/16/16 16:34: Glucometer 140H 11/16/16 20:37: Glucometer 133H 11/17/16 05:41: Glucometer 186H 11/17/16 07:27: Hemoglobin A1c 8.9H Assessment/Plan Assessment/Plan Assess & Plan/Chief Complaint debility. Insulin-dependent diabetic. Obesity. COPD. Right BKA. Renal insufficiency.. History of UTI with sepsis. Previous history of pneumonia. . 11/15/16. Debility. Insulin-dependent diabetes UTI with sepsis. Previous pneumonia. Previous atrial fib resolve by IV medicine. . . Debility. Insulin-dependent diabetic. UTI. Previous A. fib. BKA. Patient needs to see public policy coordinator.. Diabetes under control. . 11/17/16. Debility. Insulin-dependence. Insomnia patient unable to sleep last night. BKA Patient voices no complaints today except not sleeping Clinical Quality Measures DVT/VTE Risk/Contraindication: Risk Factor Score Per Nursin RFS Level Per Nursing on Admit: 4+=Very High ANNI SANTOS DO Nov 17, 2016 08:25
[2016-11-17] MEDS: CARVEDILOL 12.5 MG (COREG) TABLET PO SCH ×2 (08:48→20:51)
[2016-11-17] MEDS: SPIRONOLACTONE 25 MG (ALDACTONE) TAB PO SCH (08:48)
[2016-11-17] MEDS: amLODIPine 10 MG (NORVASC) TAB PO SCH (08:49)
[2016-11-17] MEDS: FUROSEMIDE 40 MG (LASIX) TAB PO SCH (08:49)
[2016-11-17] MEDS: DILTIAZEM 180 MG (CARDIZEM CD) CAP PO SCH (08:49)
[2016-11-17] MEDS: CIPROFLOXACIN 500 MG (CIPRO) TABLET PO SCH ×2 (08:49→20:52)
[2016-11-17] MEDS: ISOSORBIDE MONONITRATE 30 MG (IMDUR) TAB PO SCH (08:49)
[2016-11-17] MEDS: KCL 20 MEQ TAB (K-DUR) PO SCH (08:49)
[2016-11-17] MEDS: HYDROcodone/APAP 5 MG/325 MG (LORTAB) TAB PO PRN ×2 (08:49→20:51)
[2016-11-17] MEDS: KETOCONAZOLE 2% CREAM 15 GM (NIZORAL) TOP SCH ×2 (08:50→20:52)
[2016-11-17] MEDS: MENTHOL/ZINC OXIDE (CALMOSEPTINE) 113 GM TUBE TOP SCH ×2 (08:50→20:52)
[2016-11-17] MEDS: inSUlin DETERMIR 1 UNIT/0.01 ML (LEVEMIR) CHARGE PER UNIT SQ SCH ×2 (08:50→20:51)
--- NOTE | 2016-11-17 09:57 | PM & R (SOAP) Progress Note ---
Subjective Time Seen by Provider: 08:05 Subjective/Events-last exam Patient was seen in her room this AM Appreciate DR Jason note Discussed case with him ly he requested a HGBa1c noted elevated >7.2 Discussed case with staff Patient agreeable to discharge to home on Sunday11-19-16 with daughter Patient sba for transfers Objective Exam Last Set of Vital Signs Vital Signs Date Time Temp Pulse Resp B/P (MAP) Pulse Ox O2 Delivery O2 Flow Rate FiO2 11/17/16 05:51 98.4 63 20 109/62 91 Nasal Cannula 3.00 Capillary Refill : I&O Intake and Output 11/18/16 00:00 Intake Total 300 ml Balance 300 ml Intake Oral 300 ml # Voids 4 General: Alert, No Acute Distress HEENT: Atraumatic, PERRLA, EOMI, Mucous Memb Moist/[place] Neck: Supple, No JVD Lungs: Normal Air Movement Heart: Regular Rate Abdomen: Normal Bowel Sounds, Soft, No Tenderness Extremities: Other (RT BKA rssidual limb non tender small area of breakdown both legs covered with dressing) Skin: Other (R [place]ock -- 1.5 x 1.4 x 0.1 cm, 10% slough, 90% regenerating tissue. mod. s.s. drainage.) Neuro: Other (Strength 2/5 RT Upper limb associated with edema Left Hip flex 2/ 5 Left Knee ext 5/5 Rt L extremity hip flex 2/5 sensation grossly intact to touch) Results Lab Laboratory Tests 11/14/16 10:50: Glucometer 135H 11/14/16 16:24: Glucometer 75 11/14/16 20:13: Glucometer 121H 11/15/16 05:21: Glucometer 136H 11/15/16 08:16: Glucometer 225H 11/15/16 10:59: Glucometer 162H 11/15/16 16:50: Glucometer 159H 11/15/16 20:39: Glucometer 183H 11/16/16 05:18: Glucometer 148H 11/16/16 11:12: Glucometer 217H 11/16/16 16:34: Glucometer 140H 11/16/16 20:37: Glucometer 133H 11/17/16 05:41: Glucometer 186H 11/17/16 07:27: Hemoglobin A1c 8.9H Assessment/Plan Assessment General debil s/p sepsis due to UTI Mrsa wounds legs on contact precautions RT BKA old IDDM Morbid obesity MACIEL noncompliant with cpap on 02 at night HTN controlled with meds Urinary frequency-monitor for retention. Plan Continue PT/OT/wound care/skin care Team Conference held 10-15-16-See report for full functional update and POC and ELOS F/U with woundcare and DR Engel as their schedule Dr engel indicated that Patient neede Podiatry consult- done Additional DX-onychomycosis Peripheral Vascular D Apprciate Dr Faria note Additional diagnosis-Pressure ulcer rt buttock unstagable urinary incontinence with MASD Discharge remains set for 11-17-16 MINOR COLÓN MD Nov 17, 2016 09:57
--- NOTE | 2016-11-17 11:04 | Physical Therapy Daily Note ---
PT Daily Note-Current Subjective Pt was sitting in wheelchair prior to tx and agreeable to PT. Pt reports not sleeping well last night due to pain. Pt is positioned on her left side lying in bed with nurse call, phone, tray, all needs in reach post tx. Pain Numeric Pain Scale: 7 Location Body Site: Arm (right) Pain Description: Ache Mental Status Patient Orientation: Normal For Age Transfers Functional [place] Measure 0=Not Assessed/NA 4=Minimal Assistance 1=Total Assistance 5=Supervision or Setup 2=Maximal Assistance 6=Modified [place] 3=Moderate Assistance 7=Complete IndependenceIRFPAI Quality Coding Scale 6 Independent with activity with or without an assistive device 5 Patient requires set up or clean up by helper. Patient completes activity by themselves 4 Supervision or touching assist (CGA). [place] provide cues , steadying assist 3 The helper provides less than half the effort to complete the activity 2 The helper provides more than half the effort to complete the activity 1 Dependent. The helper does all the effort to complete an activity 7 Patient refused to complete or attempt activity 9 The patient did not perform the activity before the current illness or injury 88 Not attempted due to Medical conditions or safety concerns Transfers (B, C, W/C) (FIM): 6 Scootin Rollin Roll Left to Right (QC): 6 Supine to/from Sit: 6 Sit to/from Stand: 6 Sit to Lying (QC): 6 Sit to Stand (QC): 6 Chair/Ftn-ji-Muxat Xfer(QC): 6 Bed to/from Chair: 6 Pt is mod I with all bed mobility and transfers. Pt uses hand rails on bed for support with supine to sit and rolling in bed. Gait Training Does the Patient Walk?: No and Walking Goal NOT indicated Wheelchair Training Does the Pt Use a Wheelchair?: Yes Wheelchair (FIM): 6 Wheelchair Distance: 3=150 ft Distance: 300' Wheelchair Level of Assist: 6 Wheel 50 ft with 2 turns (QC): 6 Wheel 150 ft (QC): 6 Type of Wheelchair: Motorized Pt is mod I with all wheelchair mobility. Exercises Supine Ex: Quad Set, Rolling, Glut sets, Heel Slides, Short Arc Quads, Straight leg raise, Hip abd/add Supine Reps: 20 Seated Therapy Exercises: Ankle pumps, Long arc quads, Hip flexion, Hip abd/add Seated Reps: 20 Treatments Pt completes all supine and seated exercises for functional LE strengthening. Assessment Current Status: Good Progress Pt completes all seated and supine exercises with supervision. Pt requires support under left leg with SLR and heel slides. PT Short Term Goals Short Term Goals Time Frame: Nov 21, 2016 Gait (FIM): 0 Distance (FIM): 0=does not occure Wheelchair Distance: 300' PT Arresting Gear Operator Goals [facility]sp Goals PT Arresting Gear Operator Goals Time Frame: Dec 05, 2016 Transfers (B,C,W/C) (FIM): 6 (met) Sit to Lying (QC): 6 (met) Lying-Sitting on Side/Bed(QC): 6 (met) Sit to Stand (QC): 6 (met) Rollin (met) Roll Left to Right (QC): 6 (met) Chair/Yty-gb-Gywnu Xfer(QC): 6 (met) Car Transfer (QC): 6 Does the Patient Walk: No and Walking Goal NOT indicated PT Plan Problem List Problem List: Activity Tolerance, Functional Strength, Safety, Balance, Transfer, Bed Mobility, ROM Treatment/Plan Treatment Plan: Continue Plan of Care Treatment Plan: Bed Mobility, Education, Functional Activity Anita, Functional Strength, Group Therapy, Safety, Therapeutic Exercise, Transfers Treatment Duration: Dec 05, 2016 Frequency: At least 5 to 7 days/Wk (IRF) Estimated Hrs Per Day: 1.5 hours per day Patient and/or Family Agrees t: Yes Safety Risks/Education Patient Education: Transfer Techniques, Reviewed Precautions, Correct Positioning, W/C Management, Safety Issues Teaching Recipient: Patient Teaching Methods: Demonstration, Discussion Response to Teaching: Verbalize Understanding, Reinforcement Needed Time/GCodes Time In: 1000 Time Out: 1100 Total Billed Treatment Time: 60 Total Billed Treatment 1 visit 20 FA 10 W[facility] 30 DARION BARRAZA PT Nov 17, 2016 11:04
[2016-11-17] MEDS ORDERED: DIAZ5TAB3 PO (12:36)
[2016-11-17] MEDS ORDERED: CYCL10TA9 PO ×2 (12:36)
[2016-11-17] MEDS ORDERED: POTA20TA15 PO (12:36)
[2016-11-17] MEDS ORDERED: ATOR40TA70 PO (12:36)
[2016-11-17] MEDS ORDERED: DICL100G18 TP (12:36)
[2016-11-17] MEDS ORDERED: KETO15CR2 TOP (12:36)
[2016-11-17] MEDS ORDERED: CARV12.53 PO (12:36)
[2016-11-17] MEDS ORDERED: HYDR-3812 PO (12:36)
[2016-11-17] MEDS ORDERED: FURO-124 PO (12:36)
[2016-11-17] MEDS ORDERED: RT-ALBUINH IH (12:36)
[2016-11-17] MEDS ORDERED: ISOS30TA3 PO (12:36)
[2016-11-17] MEDS ORDERED: SPIR50TA2 PO (12:36)
[2016-11-17] MEDS ORDERED: RIVA20TA PO (12:36)
[2016-11-17] MEDS ORDERED: MENT71OI TOP (12:36)
[2016-11-17] MEDS ORDERED: AMLO10TA2 PO (12:36)
[2016-11-17] MEDS ORDERED: DILT180C54 PO (12:36)
[2016-11-17] MEDS ORDERED: CIPR500T4 PO (12:36)
--- NOTE | 2016-11-17 13:07 | Occupational Ther Daily Note ---
OT Current Status-Daily Note Subjective Pt in bed, agrees to treatment. Pt reports 7/10 pain in right shoulder, neck, and back. Mental Status/Objective Functional [place] Measure 0=Not Assessed/NA 4=Minimal Assistance 1=Total Assistance 5=Supervision or Setup 2=Maximal Assistance 6=Modified [place] 3=Moderate Assistance 7=Complete [place] ADL-Treatment Pt supine to sit with modified independence. Transfer EOB to w/c with increased time. Pt able to maneuver power w/c around room without. Pt declined shower at this time, states she has a set up at home that works for her so she will shower at home. Sponge bath completed seated at sink. Pt able to wash upper body and upper legs. Uses long handled sponge to wash right lower leg and left foot. Assist for other areas. Don dress after set up. Transfer to [facility] over toilet with modified independence. Pt requires assist to complete toileting hygiene and to manage clothing. Pt describes her home set up for toileting and states she will not have problem once she is home. Pt requires max assist to don Depends. Pt states she does not always wear Depends during the day, but always wears them at night. Pt states she usually wears dresses so she does not have to complete lower body dressing. Pt able to doff left sock with branding machine tender, but requires assist to don. Grooming tasks completed seated at sink. Pt brushed teeth, combed hair, and washed face with modified independence. Pt sitting in chair with needs met after session. Plan is for pt to d/c home Sunday with daughter. Pt has no questions or concerns at this time regarding ADLs, mobility , or home safety. Functional [place] Measure 0=Not Assessed/NA 4=Minimal Assistance 1=Total Assistance 5=Supervision or Setup 2=Maximal Assistance 6=Modified [place] 3=Moderate Assistance 7=Complete IndependenceIRFPAI Quality Coding Scale 6 Independent with activity with or without an assistive device 5 Patient requires set up or clean up by helper. Patient completes activity by themselves 4 Supervision or touching assist (CGA). [place] provide cues , steadying assist 3 The helper provides less than half the effort to complete the activity 2 The helper provides more than half the effort to complete the activity 1 Dependent. The helper does all the effort to complete an activity 7 Patient refused to complete or attempt activity 9 The patient did not perform the activity before the current illness or injury 88 Not attempted due to Medical conditions or safety concerns Eating (FIM): 7 (Pt reports feeding self, managing containers, and cutting food without assistance) Eating (QC): 6 Grooming (FIM): 6 Oral Hygiene (QC): 6 Bathing (FIM): 4 Shower/Bathe Self (QC): 3 Upper Body (FIM): 5 Upper Body Dressing (QC): 5 Lower Body Dressing (FIM): 2 Lower Body Dressing (QC): 2 On/Off Footwear (QC): 3 Toileting (FIM): 2 Toileting Hygiene (QC): 2 Toilet/Commode Transfer (FIM): 6 Toilet Transfer (QC): 6 OT Short Term Goals Short Term Goals Time Frame: Nov 21, 2016 Bathing(FIM): 4 Upper Body Dressing(FIM): 5 Lower Body Dressing(FIM): 4 Toileting(FIM): 4 Toilet/Commode Transfer(FIM): 4 Shower Transfer(FIM): 4 Additional Short Term Goals: 1-Demonstrate ADL Tasks, 2-Verbalize Understanding , 3-ImproveStrength/Anita 1=Demonstrate adherence to instructed precautions during ADL tasks. 2=Patient will verbalize/demonstrate understanding of assistive devices/ modifications for ADL. 3=Patient will improve strength/tolerance for activity to enable patient to perform ADL's. OT Processing Technologist Goals Processing Technologist Goals Time Frame: Dec 05, 2016 Eating (FIM): 6 Eating (QC): 6 Groomin Oral Hygiene (QC): 6 Bathing(FIM): 5 Shower/Bathe Self (QC): 5 Upper Body Dressing(FIM): 6 Upper Body Dressing (QC): 6 Lower Body Dressing(FIM): 5 Lower Body Dressing (QC): 4 On/Off Footwear (QC): 5 Toileting(FIM): 6 Toileting Hygiene (QC): 6 Toilet/Commode Transfer(FIM): 6 Toilet/Commode Transfer (QC): 6 Shower Transfer(FIM): 5 Additional Goals: 1-Demonstrate ADL Tasks, 2-Verbalize Understanding, 3- ImproveStrength/Anita 1=Demonstrate adherence to instructed precautions during ADL tasks. 2=Patient will verbalize/demonstrate understanding of assistive devices/ modifications for ADL. 3=Patient will improve strength/tolerance for activity to enable patient to perform ADL's. OT Education/Plan Problem List/Assessment Pt to benefit from skilled OT intervention for ADL training, transfers, strengthening, and home safety education to increase level of function and allow safe return home. Discharge Recommendations Plan/Recommendations: Continue POC Treatment Plan/Plan of Care Patient would benefit from OT for education, treatment and training to promote independence in ADL's, mobility, safety and/or upper extremity function for ADL' s. Plan of Care: ADL Retraining, Functional Mobility, Group Exercise/Act as Ind, UE Funct Exercise/Act Treatment Duration: Dec 05, 2016 Frequency: At least 5 to 7 days/Wk (IRF) Estimated Hrs Per Day: 1.5 hours per day Agreement: Yes Rehab Potential: Fair Time/GCodes Start Time: 08:15 Stop Time: 09:30 Total Time Billed (hr/min): 75 Billed Treatment Time 1 visit, ADLx5(75minutes) ZAHIDA QUINTERO OT Nov 17, 2016 13:07
--- NOTE | 2016-11-17 13:12 | Occupational Ther Daily Note ---
OT Current Status-Daily Note Subjective Pt in bed, agrees to treatment. Pt reports 7/10 pain in right shoulder. Mental Status/Objective Functional [place] Measure 0=Not Assessed/NA 4=Minimal Assistance 1=Total Assistance 5=Supervision or Setup 2=Maximal Assistance 6=Modified [place] 3=Moderate Assistance 7=Complete [place] ADL-Treatment Functional [place] Measure 0=Not Assessed/NA 4=Minimal Assistance 1=Total Assistance 5=Supervision or Setup 2=Maximal Assistance 6=Modified [place] 3=Moderate Assistance 7=Complete IndependenceIRFPAI Quality Coding Scale 6 Independent with activity with or without an assistive device 5 Patient requires set up or clean up by helper. Patient completes activity by themselves 4 Supervision or touching assist (CGA). [place] provide cues , steadying assist 3 The helper provides less than half the effort to complete the activity 2 The helper provides more than half the effort to complete the activity 1 Dependent. The helper does all the effort to complete an activity 7 Patient refused to complete or attempt activity 9 The patient did not perform the activity before the current illness or injury 88 Not attempted due to Medical conditions or safety concerns Other Treatment Pt completed left UE exercises to promote increased strength needed for ADLs and transfers. Right UE exercises not completed at this time secondary to pt's reports of pain and stating she is just now getting comfortable. Pt completed shoulder flexion, abduction, biceps curls, and wrist flexion/extension x15 reps with 2# weight. Rest breaks between exercises. Pt resting in bed with needs met after session. OT Short Term Goals Short Term Goals Time Frame: Nov 21, 2016 Bathing(FIM): 4 Upper Body Dressing(FIM): 5 Lower Body Dressing(FIM): 4 Toileting(FIM): 4 Toilet/Commode Transfer(FIM): 4 Shower Transfer(FIM): 4 Additional Short Term Goals: 1-Demonstrate ADL Tasks, 2-Verbalize Understanding , 3-ImproveStrength/Anita 1=Demonstrate adherence to instructed precautions during ADL tasks. 2=Patient will verbalize/demonstrate understanding of assistive devices/ modifications for ADL. 3=Patient will improve strength/tolerance for activity to enable patient to perform ADL's. OT Submarine Advisory Team Watch Officer Goals Submarine Advisory Team Watch Officer Goals Time Frame: Dec 05, 2016 Eating (FIM): 6 Eating (QC): 6 Groomin Oral Hygiene (QC): 6 Bathing(FIM): 5 Shower/Bathe Self (QC): 5 Upper Body Dressing(FIM): 6 Upper Body Dressing (QC): 6 Lower Body Dressing(FIM): 5 Lower Body Dressing (QC): 4 On/Off Footwear (QC): 5 Toileting(FIM): 6 Toileting Hygiene (QC): 6 Toilet/Commode Transfer(FIM): 6 Toilet/Commode Transfer (QC): 6 Shower Transfer(FIM): 5 Additional Goals: 1-Demonstrate ADL Tasks, 2-Verbalize Understanding, 3- ImproveStrength/Anita 1=Demonstrate adherence to instructed precautions during ADL tasks. 2=Patient will verbalize/demonstrate understanding of assistive devices/ modifications for ADL. 3=Patient will improve strength/tolerance for activity to enable patient to perform ADL's. OT Education/Plan Problem List/Assessment Pt to benefit from skilled OT intervention for ADL training, transfers, strengthening, and home safety education to increase level of function and allow safe return home. Discharge Recommendations Plan/Recommendations: Continue POC Treatment Plan/Plan of Care Patient would benefit from OT for education, treatment and training to promote independence in ADL's, mobility, safety and/or upper extremity function for ADL' s. Plan of Care: ADL Retraining, Functional Mobility, Group Exercise/Act as Ind, UE Funct Exercise/Act Treatment Duration: Dec 05, 2016 Frequency: At least 5 to 7 days/Wk (IRF) Estimated Hrs Per Day: 1.5 hours per day Agreement: Yes Rehab Potential: Fair Time/GCodes Start Time: 11:30 Stop Time: 11:45 Total Time Billed (hr/min): 15 Billed Treatment Time 1 visit, EX(15minutes) ZAHIDA QUINTERO OT Nov 17, 2016 13:12
--- NOTE | 2016-11-17 15:03 | Physical Therapy Daily Note ---
PT Daily Note-Current Subjective Pt is napping in bed prior to tx and agreeable to PT. Pt is lying on right side in bed, pillow between knees, nurse call, phone, tray, all needs in reach post tx. Pain Numeric Pain Scale: 7 Location Body Site: Arm (right) Pain Description: Ache Mental Status Patient Orientation: Normal For Age Transfers Functional [place] Measure 0=Not Assessed/NA 4=Minimal Assistance 1=Total Assistance 5=Supervision or Setup 2=Maximal Assistance 6=Modified [place] 3=Moderate Assistance 7=Complete IndependenceIRFPAI Quality Coding Scale 6 Independent with activity with or without an assistive device 5 Patient requires set up or clean up by helper. Patient completes activity by themselves 4 Supervision or touching assist (CGA). [place] provide cues , steadying assist 3 The helper provides less than half the effort to complete the activity 2 The helper provides more than half the effort to complete the activity 1 Dependent. The helper does all the effort to complete an activity 7 Patient refused to complete or attempt activity 9 The patient did not perform the activity before the current illness or injury 88 Not attempted due to Medical conditions or safety concerns Transfers (B, C, W/C) (FIM): 6 Scootin Rollin Supine to/from Sit: 6 Pt is mod I with all transfers. Gait Training Does the Patient Walk?: No and Walking Goal NOT indicated Exercises Supine Ex: Quad Set, Glut sets, Heel Slides, Short Arc Quads, Straight leg raise, Hip abd/add Supine Reps: 20 Treatments Pt completes supine exercises for functional LE strengthening. Pt also completes transfers to [facility], toilet, and bed with mod I. Assessment Current Status: Good Progress Pt completes supine exercises with supervision and verbal cues. PT Short Term Goals Short Term Goals Time Frame: Nov 21, 2016 Gait (FIM): 0 Distance (FIM): 0=does not occure Wheelchair Distance: 300' PT Housekeeping Room Inspector Goals Housekeeping Room Inspector Goals PT [facility] Goals Time Frame: Dec 05, 2016 Transfers (B,C,W/C) (FIM): 6 Sit to Lying (QC): 6 Lying-Sitting on Side/Bed(QC): 6 Sit to Stand (QC): 6 Rollin Roll Left to Right (QC): 6 Chair/Muz-bh-Jfwny Xfer(QC): 6 Car Transfer (QC): 6 Does the Patient Walk: No and Walking Goal NOT indicated PT Plan Problem List Problem List: Activity Tolerance, Functional Strength, Safety, Balance, Transfer, Bed Mobility, ROM Treatment/Plan Treatment Plan: Continue Plan of Care Treatment Plan: Bed Mobility, Education, Functional Activity Anita, Functional Strength, Group Therapy, Safety, Therapeutic Exercise, Transfers Treatment Duration: Dec 05, 2016 Frequency: At least 5 to 7 days/Wk (IRF) Estimated Hrs Per Day: 1.5 hours per day Patient and/or Family Agrees t: Yes Safety Risks/Education Patient Education: Transfer Techniques, Reviewed Precautions, Correct Positioning, W/C Management, Safety Issues Teaching Recipient: Patient Teaching Methods: Demonstration, Discussion Response to Teaching: Verbalize Understanding, Reinforcement Needed Time/GCodes Time In: 1300 Time Out: 1340 Total Billed Treatment Time: 40 Total Billed Treatment 1 visit 10 EX 30 DARION BRADEN PT Nov 17, 2016 15:03
--- NOTE | 2016-11-17 16:30 | Wound Care Progress Note ---
Subjective Subjective Subjective/Events-last exam 71 year old female with pressure ulcer R buttock, which is improved with current Rx. Plans to go home in 2 days. Will follow with primary care, Dr. Cassidy in [place]. No new c/o. Review of Systems Date Seen by Provider: Nov 17, 2016 Time Seen by Provider: 16:00 General: No Chills, Fatigue Pulmonary: No Dyspnea Objective Exam Last Set of Vital Signs Vital Signs Date Time Temp Pulse Resp B/P (MAP) Pulse Ox O2 Delivery O2 Flow Rate FiO2 11/17/16 09:30 Room Air 11/17/16 05:51 98.4 63 20 109/62 91 3.00 Capillary Refill : I&O Intake and Output 11/18/16 00:00 Intake Total 300 ml Balance 300 ml Intake Oral 300 ml # Voids 4 General: Alert, No Acute Distress Lungs: Normal Air Movement Skin: Other (R buttock -- 0.7 x 0.4 x 0.1 cm; 100% slough.) Results Lab Laboratory Tests 11/16/16 16:34: Glucometer 140H 11/16/16 20:37: Glucometer 133H 11/17/16 05:41: Glucometer 186H 11/17/16 07:27: Hemoglobin A1c 8.9H 11/17/16 11:13: Glucometer 159H Assessment/Plan Assessment/Plan Assessment/Plan 1. Pressure ulcer, R buttock, unstageable. 2. Urinary incontinence. 3. Limited mobility. Plan: Continue barrier cream and frequent turning and toileting. To be followed by Dr. Cassidy. PITO PEREZ MD Nov 17, 2016 16:30
[2016-11-17 17:51] VITALS: BP 106/65
[2016-11-17] MEDS: RIVAROXABAN 20 MG TABLET (XARELTO) PO SCH (18:03)
[2016-11-17] MEDS: CYCLOBENZAPRINE 10 MG (FLEXERIL) TAB PO SCH (20:52)
[2016-11-17] MEDS: ATORVASTATIN 40 MG (LIPITOR) TABLET PO SCH (20:52)
[2016-11-17] MEDS: DICLOFENAC 1% GEL 100 GM (VOLTAREN) TUBE TP PRN (20:52)
[2016-11-18] MEDS: HYDROcodone/APAP 5 MG/325 MG (LORTAB) TAB PO PRN ×4 (01:10→20:55)
--- NOTE | 2016-11-18 02:05 | CONSULTATION REPORT ---
DATE OF SERVICE: 11/16/2016 REASON FOR CONSULTATION: Diabetic foot care. HISTORY OF PRESENT ILLNESS: The patient was admitted for rehabilitation after several previous hospitalizations and admissions to [place] [facility] with complications. She is an insulin-dependent diabetic and has a history of upivm-kxq-jalx amputation, has mobility through an electronic wheel chair. She was hospitalized at [facility] in July and subsequently sent home and developed a urinary tract infection, developing sepsis. She was admitted to [facility] after that, treated for her leg wound that was positive for MRSA at that time. She has an indwelling catheter for the last couple of years. The patient has difficulty reaching for and caring for her own feet. She is not sure if she has hit any of the toes of the left foot at this point. PAST MEDICAL HISTORY: Includes: 1. 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 2. History of diabetic leg ulcer. 3. 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 4. Type 2 diabetes, insulin-dependent. 5. Chronic renal insufficiency. 6. Congestive heart failure. 7. GERD. 8. Hypertension. 9. Hyperlipidemia. PAST SURGICAL HISTORY: Include hysterectomy and right dykon-tsv-nbcq amputation. ALLERGIES: She is allergic to LISINOPRIL. CURRENT MEDICATIONS: Listed on the patient's chart. SOCIAL HISTORY: She lives in a single-level home with children. She does have a ramp available to get into her home. She denies alcohol use. Former smoker. PHYSICAL EXAMINATION: GENERAL: The patient is currently afebrile. VITAL SIGNS: Stable. LOWER EXTREMITY EXAMINATION: The patient has a below-knee amputation on the right lower extremity. On the left, she has 2/4 dorsalis pedis pulse, 0/4 posterior tibial pulse with cap refill time is less than 3 seconds. Pitting edema is noted to the left lower extremity at the ankle and foot. NEUROLOGICAL: The patient has absent protective sensation for 10 gram monofilament wire examination of the left. She has diminished deep tendon reflexes and diminished vibratory sensation of the left foot. She has thick yellow dystrophic toenail with subungual debris associated with L1, 2, 3, and 4 digits. There is no nail plate noted to the left fifth digit. She has multiple eschars noted to the dorsal aspect of the toes on the left. No open lesions are identified. MUSCULOSKELETAL: She has 4/5 muscle strength in the four major quadrants of the foot on the left. She has contracted left fifth digit. Assessment: 1. Diabetic neuropathy. 2. Onychomycosis. 3. Hammer digit syndrome. 4. Atherosclerosis. 5. History of mvfpt-tpv-gcwx amputation on the right. PLAN: Various treatment options were discussed with the patient. Her toenails were debrided manually and mechanically. Betadine was applied. Diabetic foot care was discussed at length with the patient. I recommend appropriate shoes to protect her feet. I also recommend that while she is in bed that she utilizes pressure precautions to avoid decubitus heel ulcer on the left. The patient is welcome to follow up in our clinic as needed. Job ID: [id number] DocumentID: [id number] Dictated Date: 11/16/2016 17:24:14 Home Help Aide Date: 11/16/2016 21:56:06 Dictated By: NANCY MORALES DPM
[2016-11-18 05:00] VITALS: BP 137/64
[2016-11-18] MEDS: inSUlin ASPART (NovoLOG) 1 UNIT/0.01 ML (CHARGE PER UNIT) SC SCH ×3 (06:35→17:13)
[2016-11-18] MEDS: SPIRONOLACTONE 25 MG (ALDACTONE) TAB PO SCH (08:01)
[2016-11-18] MEDS: CIPROFLOXACIN 500 MG (CIPRO) TABLET PO SCH ×2 (08:01→20:55)
[2016-11-18] MEDS: FUROSEMIDE 40 MG (LASIX) TAB PO SCH (08:01)
[2016-11-18] MEDS: KCL 20 MEQ TAB (K-DUR) PO SCH (08:01)
[2016-11-18] MEDS: DILTIAZEM 180 MG (CARDIZEM CD) CAP PO SCH (08:01)
[2016-11-18] MEDS: inSUlin DETERMIR 1 UNIT/0.01 ML (LEVEMIR) CHARGE PER UNIT SQ SCH ×2 (08:02→20:55)
[2016-11-18] MEDS: ISOSORBIDE MONONITRATE 30 MG (IMDUR) TAB PO SCH (08:02)
[2016-11-18] MEDS: CARVEDILOL 12.5 MG (COREG) TABLET PO SCH ×2 (08:02→20:55)
[2016-11-18] MEDS: MENTHOL/ZINC OXIDE (CALMOSEPTINE) 113 GM TUBE TOP SCH ×2 (08:02→20:55)
[2016-11-18] MEDS: amLODIPine 10 MG (NORVASC) TAB PO SCH (08:02)
[2016-11-18] MEDS: KETOCONAZOLE 2% CREAM 15 GM (NIZORAL) TOP SCH ×2 (08:03→21:08)
--- NOTE | 2016-11-18 09:14 | Physical Therapy Daily Note ---
PT Daily Note-Current Subjective Pt. delightful to visit with and shared her history. States she would really prefer to go to the NH she had been in previously but cant as she cant go on Medicaid yet as her daughter would lose the home she intends to leave to her. States she was fitted with a prosthesis for her right leg years ago but it never fit properly and "it just sits there in my house". Agrees to Rx. States she is leaving tomorrow and feels she is at PLOF Pain Numeric Pain Scale: 0-No Pain Mental Status Patient Orientation: Normal For Age Transfers Functional [place] Measure 0=Not Assessed/NA 4=Minimal Assistance 1=Total Assistance 5=Supervision or Setup 2=Maximal Assistance 6=Modified [place] 3=Moderate Assistance 7=Complete IndependenceIRFPAI Quality Coding Scale 6 Independent with activity with or without an assistive device 5 Patient requires set up or clean up by helper. Patient completes activity by themselves 4 Supervision or touching assist (CGA). [place] provide cues , steadying assist 3 The helper provides less than half the effort to complete the activity 2 The helper provides more than half the effort to complete the activity 1 Dependent. The helper does all the effort to complete an activity 7 Patient refused to complete or attempt activity 9 The patient did not perform the activity before the current illness or injury 88 Not attempted due to Medical conditions or safety concerns Transfers (B, C, W/C) (FIM): 6 Scootin Rollin Roll Left to Right (QC): 6 Supine to/from Sit: 6 Sit to/from Stand: 6 Sit to Lying (QC): 6 Sit to Stand (QC): 6 Bed to/from Chair: 6 Gait Training Does the Patient Walk?: No and Walking Goal NOT indicated Wheelchair Training Does the Pt Use a Wheelchair?: Yes Wheelchair (FIM): 6 Wheelchair Distance: 3=150 ft (300plus) Wheelchair Level of Assist: 6 Wheel 50 ft with 2 turns (QC): 6 Wheel 150 ft (QC): 6 Type of Wheelchair: Motorized Exercises Supine Ex: Ankle pumps, Quad Set, Rolling, Glut sets, Heel Slides, Short Arc Quads, Scooting, Straight leg raise, Hip abd/add Supine Reps: 15 Seated Therapy Exercises: Ankle pumps, Sit to stand, Long arc quads, Hip flexion Seated Reps: 10 Assessment Current Status: Good Progress bed mob ,bed to chair TRFs, w/c to toilet TRF all Mod I to SBA PT Short Term Goals Short Term Goals Time Frame: Nov 21, 2016 Gait (FIM): 0 Distance (FIM): 0=does not occure Wheelchair Distance: 300' PT Legal Operations Manager Goals [facility] Goals PT Legal Operations Manager Goals Time Frame: Dec 05, 2016 Transfers (B,C,W/C) (FIM): 6 Sit to Lying (QC): 6 Lying-Sitting on Side/Bed(QC): 6 Sit to Stand (QC): 6 Rollin Roll Left to Right (QC): 6 Chair/Bii-hl-Sgpdu Xfer(QC): 6 Car Transfer (QC): 6 Does the Patient Walk: No and Walking Goal NOT indicated PT Plan Treatment/Plan Treatment Plan: Continue Plan of Care Treatment Plan: Bed Mobility, Education, Functional Activity Anita, Functional Strength, Group Therapy, Safety, Therapeutic Exercise, Transfers Treatment Duration: Dec 05, 2016 Frequency: At least 5 to 7 days/Wk (IRF) Estimated Hrs Per Day: 1.5 hours per day Patient and/or Family Agrees t: Yes Safety Risks/Education Patient Education: Transfer Techniques, Correct Positioning, W/C Management, Disease Process, Safety Issues Teaching Recipient: Patient Teaching Methods: Demonstration, Discussion Response to Teaching: Verbalize Understanding, Return Demonstration Time/GCodes Time In: 800 Time Out: 900 Total Billed Treatment Time: 60 Total Billed Treatment 1,w/c20m,FA25m,EX15m G Codes Necessary: MEE Barbosa PTA Nov 18, 2016 09:14
[2016-11-18] MEDS: CYCLOBENZAPRINE 10 MG (FLEXERIL) TAB PO PRN (12:03)
--- NOTE | 2016-11-18 12:20 | Therapy Group Daily Note ---
Therapy Daily Group Note Patient Education Topic Home Safety (pets and safety) Other/Notes Pt. attended group PT OT session . Pt. came indep via motorized w/c. Pt. was fully dressed out per isolation in gown and gloves and sat 10 away from others. Pt. very social introducing self and sharing re: topics of heritage and then about pets at home and home safety involving pets. Pt. TRFs in out power chair with SBA to Mod I. Pt. shared the joys and hazards of owning indoor rabbits, birds and dogs. Pt. in room after group with [place] at hand and lunch on tray Start Time: 11:00 Stop Time: 12:00 Total Billed Treatment Time: 60 Total Billed Treatment 1,GRP MEE PHAN DIRECTOR CALL Nov 18, 2016 12:20
--- NOTE | 2016-11-18 12:46 | Occupational Ther Daily Note ---
OT Current Status-Daily Note Subjective "I am leaving tomorrow to go to my home." Mental Status/Objective Functional [place] Measure 0=Not Assessed/NA 4=Minimal Assistance 1=Total Assistance 5=Supervision or Setup 2=Maximal Assistance 6=Modified [place] 3=Moderate Assistance 7=Complete [place] ADL-Treatment Up in wheelchair to do sink bath. Assistance required to pull up brief after toileting. Able to do remainder of sink bath using sponge for feet and lower legs. Does bottom and ramon area when finished with toileting. Dressed self in dress already in the bathroom. She has everything set up in the bathroom prior to completing self care when home as daughter is already at work. Functional [place] Measure 0=Not Assessed/NA 4=Minimal Assistance 1=Total Assistance 5=Supervision or Setup 2=Maximal Assistance 6=Modified [place] 3=Moderate Assistance 7=Complete IndependenceIRFPAI Quality Coding Scale 6 Independent with activity with or without an assistive device 5 Patient requires set up or clean up by helper. Patient completes activity by themselves 4 Supervision or touching assist (CGA). [place] provide cues , steadying assist 3 The helper provides less than half the effort to complete the activity 2 The helper provides more than half the effort to complete the activity 1 Dependent. The helper does all the effort to complete an activity 7 Patient refused to complete or attempt activity 9 The patient did not perform the activity before the current illness or injury 88 Not attempted due to Medical conditions or safety concerns Other Treatment Patient brought to clinic with gown and gloves. Nursing reported she could leave the room for session in the clinic today. To clinic to address upper body strength and endurance work. Complete minimal resistive theraband for the LUE and distal right. PROM with gentle stretching to the right shoulder. Moderate resistive putty for gross grasp work, rolling, pinch, bead search, twisting and pulling. In electric wheelchair for mobilization which she handles independently back to her room. Issued minimal resistive theraband for her to use in the room along with the moderate resistive putty for bilateral hands. OT Short Term Goals Short Term Goals Time Frame: Nov 21, 2016 Eating(FIM): 6 Grooming(FIM): 6 Bathing(FIM): 5 Upper Body Dressing(FIM): 6 Lower Body Dressing(FIM): 4 Toileting(FIM): 6 Toilet/Commode Transfer(FIM): 6 Shower Transfer(FIM): 5 Additional Short Term Goals: 1-Demonstrate ADL Tasks, 2-Verbalize Understanding , 3-ImproveStrength/Anita 1=Demonstrate adherence to instructed precautions during ADL tasks. 2=Patient will verbalize/demonstrate understanding of assistive devices/ modifications for ADL. 3=Patient will improve strength/tolerance for activity to enable patient to perform ADL's. OT Stone Layout Marker Goals Half-Way Goals Time Frame: Dec 05, 2016 Eating (FIM): 6 Eating (QC): 6 Groomin Oral Hygiene (QC): 6 Bathing(FIM): 5 Shower/Bathe Self (QC): 5 Upper Body Dressing(FIM): 6 Upper Body Dressing (QC): 6 Lower Body Dressing(FIM): 5 Lower Body Dressing (QC): 4 On/Off Footwear (QC): 5 Toileting(FIM): 6 Toileting Hygiene (QC): 6 Toilet/Commode Transfer(FIM): 6 Toilet/Commode Transfer (QC): 6 Shower Transfer(FIM): 5 Additional Goals: 1-Demonstrate ADL Tasks, 2-Verbalize Understanding, 3- ImproveStrength/Anita 1=Demonstrate adherence to instructed precautions during ADL tasks. 2=Patient will verbalize/demonstrate understanding of assistive devices/ modifications for ADL. 3=Patient will improve strength/tolerance for activity to enable patient to perform ADL's. OT Education/Plan Problem List/Assessment Pt to benefit from skilled OT intervention for ADL training, transfers, strengthening, and home safety education to increase level of function and allow safe return home. Discharge Recommendations Plan/Recommendations: Continue POC Treatment Plan/Plan of Care Patient would benefit from OT for education, treatment and training to promote independence in ADL's, mobility, safety and/or upper extremity function for ADL' s. Plan of Care: ADL Retraining, Functional Mobility, Group Exercise/Act as Ind, UE Funct Exercise/Act Treatment Duration: Dec 05, 2016 Frequency: At least 5 to 7 days/Wk (IRF) Estimated Hrs Per Day: 1.5 hours per day Agreement: Yes Rehab Potential: Fair Time/GCodes Start Time: 09:05 Stop Time: 10:05 Total Time Billed (hr/min): 60 Billed Treatment Time Visit, ADL x 1, Ex x 3 ZANE HUTTON OT Nov 18, 2016 12:45
[2016-11-18] MEDS: RIVAROXABAN 20 MG TABLET (XARELTO) PO SCH (17:13)
[2016-11-18 18:03] VITALS: BP 123/68
[2016-11-18] MEDS: CYCLOBENZAPRINE 10 MG (FLEXERIL) TAB PO SCH (20:55)
[2016-11-18] MEDS: ATORVASTATIN 40 MG (LIPITOR) TABLET PO SCH (20:55)
[2016-11-19 05:05] VITALS: BP 144/70
[2016-11-19] MEDS: DILTIAZEM 180 MG (CARDIZEM CD) CAP PO SCH (09:29)
[2016-11-19] MEDS: KCL 20 MEQ TAB (K-DUR) PO SCH (09:29)
[2016-11-19] MEDS: FUROSEMIDE 40 MG (LASIX) TAB PO SCH (09:29)
[2016-11-19] MEDS: ISOSORBIDE MONONITRATE 30 MG (IMDUR) TAB PO SCH (09:29)
[2016-11-19] MEDS: CARVEDILOL 12.5 MG (COREG) TABLET PO SCH (09:29)
[2016-11-19] MEDS: CIPROFLOXACIN 500 MG (CIPRO) TABLET PO SCH (09:29)
[2016-11-19] MEDS: amLODIPine 10 MG (NORVASC) TAB PO SCH (09:30)
[2016-11-19] MEDS: inSUlin ASPART (NovoLOG) 1 UNIT/0.01 ML (CHARGE PER UNIT) SC SCH ×2 (09:30→12:00)
[2016-11-19] MEDS: SPIRONOLACTONE 25 MG (ALDACTONE) TAB PO SCH (09:30)
[2016-11-19] MEDS: inSUlin DETERMIR 1 UNIT/0.01 ML (LEVEMIR) CHARGE PER UNIT SQ SCH (09:31)
[2016-11-19] MEDS: MENTHOL/ZINC OXIDE (CALMOSEPTINE) 113 GM TUBE TOP SCH (09:43)
[2016-11-19] MEDS: KETOCONAZOLE 2% CREAM 15 GM (NIZORAL) TOP SCH (09:43)
[2016-11-19] MEDS: DICLOFENAC 1% GEL 100 GM (VOLTAREN) TUBE TP PRN (09:47)
[2016-11-19] MEDS: CYCLOBENZAPRINE 10 MG (FLEXERIL) TAB PO PRN (11:43)
[2016-11-19 12:00] VITALS: BP 144/70
--- NOTE | 2016-11-20 10:24 | Therapy Team Discharge Summary ---
Therapy Discharge Summary Discharge Recommendations Date of Discharge Nov 19, 2016 at 12:00 Therapy D/C Recommendations: Home w/ Family Support Physical Therapy Patient admitted to rehab with MRSA, UTI, and weakness. Upon admission patient performed bed mobility and transfers with CGA, and drove a power chair 300' with mod I. Patient has been performing bed mobility and transfer training, balance and endurance training, functional strengthening, and education. 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 Now, patient performs bed mobility and transfers with mod I, and drives a power chair 300' with mod I. Patient was discharged home yesterday and will be discharged from PT at this time. PT Cook Pressure Goals Cook Pressure Goals PT Cook Pressure Goals Time Frame: Dec 05, 2016 Transfers (B,C,W/C) (FIM): 6 Roll Left to Right (QC): 6 Sit to Lying (QC): 6 Lying-Sitting on Side/Bed(QC): 6 Sit to Stand (QC): 6 Chair/Erm-as-Pnhri Xfer(QC): 6 Car Transfer (QC): 6 Does the Patient Walk: No and Walking Goal NOT indicated OT Usp Goals Usp Goals Time Frame: Dec 05, 2016 Eating (FIM): 6 Eating (QC): 6 Oral Hygiene (QC): 6 Grooming(FIM): 6 Bathing(FIM): 5 Shower/Bathe Self (QC): 5 Upper Body Dressing(FIM): 6 Upper Body Dressing (QC): 6 Lower Body Dressing(FIM): 5 Lower Body Dressing (QC): 4 On/Off Footwear (QC): 5 Toileting(FIM): 6 Toileting Hygiene (QC): 6 Toilet/Commode Transfer(FIM): 6 Toilet/Commode Transfer (QC): 6 Shower Transfer(FIM): 5 Additional Goals: 1-Demonstrate ADL Tasks, 2-Verbalize Understanding, 3- ImproveStrength/Anita 1=Demonstrate adherence to instructed precautions during ADL tasks. 2=Patient will verbalize/demonstrate understanding of assistive devices/ modifications for ADL. 3=Patient will improve strength/tolerance for activity to enable patient to perform ADL's. DARION ANDRE PT Nov 20, 2016 10:24
--- NOTE | 2016-11-21 13:03 | Therapy Team Discharge Summary ---
Therapy Discharge Summary Discharge Recommendations Date of Discharge Nov 19, 2016 at 12:00 Therapy D/C Recommendations: Home w/ Family Support Occupational Therapy Pt admitted to ARU following acute hospitalization for UTI/MRSA. On admission pt required minimal assistance for transfers and UE dressing and mod assist for bathing. Skilled OT intervention focused on ADL training, transfers, strengthening, and safety education. Pt made progress with therapy and by discharge is completing toilet transfer and grooming with modified independence , UE dressing with set up, bathing with minimal assistance, and lower body dressing with maximal assistance. Pt met goals for eating, grooming, and toilet transfer, but did not meet other LTG. Pt discharged home with daughter. D/C ARU OT at this time. PT Mechanism Assembler Goals Mechanism Assembler Goals PT Fpc Goals Time Frame: Dec 05, 2016 Transfers (B,C,W/C) (FIM): 6 Roll Left to Right (QC): 6 Sit to Lying (QC): 6 Lying-Sitting on Side/Bed(QC): 6 Sit to Stand (QC): 6 Chair/Rjo-gh-Odqwf Xfer(QC): 6 Car Transfer (QC): 6 Does the Patient Walk: No and Walking Goal NOT indicated OT Fpc Goals Fpc Goals Time Frame: Dec 05, 2016 Eating (FIM): 6 Eating (QC): 6 Oral Hygiene (QC): 6 Grooming(FIM): 6 Bathing(FIM): 5 Shower/Bathe Self (QC): 5 Upper Body Dressing(FIM): 6 Upper Body Dressing (QC): 6 Lower Body Dressing(FIM): 5 Lower Body Dressing (QC): 4 On/Off Footwear (QC): 5 Toileting(FIM): 6 Toileting Hygiene (QC): 6 Toilet/Commode Transfer(FIM): 6 Toilet/Commode Transfer (QC): 6 Shower Transfer(FIM): 5 Additional Goals: 1-Demonstrate ADL Tasks, 2-Verbalize Understanding, 3- ImproveStrength/Anita 1=Demonstrate adherence to instructed precautions during ADL tasks. 2=Patient will verbalize/demonstrate understanding of assistive devices/ modifications for ADL. 3=Patient will improve strength/tolerance for activity to enable patient to perform ADL's. ZAHIDA QUINTERO OT Nov 21, 2016 13:03
--- NOTE | 2016-11-23 11:04 | DISCHARGE SUMMARY ---
DATE OF SERVICE: 11/19/2016 HISTORY OF PRESENT ILLNESS: The patient is a 71-year-old female with insulin-dependent diabetes mellitus for many years as well as a right BKA with modified independent to wheelchair level until recently when she developed pneumonia requiring hospitalization this past July at [facility]. She was subsequently sent to a local care center and then went home where she developed a UTI. She was subsequently admitted to [facility] on 11/08/2016. She was treated with antibiotics for sepsis due to UTI. The patient was found to have drainage from leg wounds positive for MRSA and the patient was placed on contact precautions. She currently has an indwelling Lester catheter. She requires assistance for ADLs and mobility skills. Her over two years ago. She lives in a [employer] [facility] trailer in [facility] with her daughter, it is wheelchair accessible. She has her own power chair which she has brought to the unit with her. She is currently completing a course of p.o. Cipro for her UTI. She has some skin breakdown on her residual right limb as well as left toe and she has dressings for these. She complains of pain in her right shoulder and arm which she relates to rheumatism or arthritic pain as well as pain over the coccygeal region from pressure. She reports being incontinent of bladder at home which she managed with pads. PAST MEDICAL HISTORY: Right BKA, diabetic leg ulcers, COPD, MACIEL, morbid obesity, stroke in the past with minimal left residual hemiparesis, type 2 diabetes mellitus insulin-dependent, chronic renal insufficiency, congestive heart failure, GERD, hypertension, hyperlipidemia. MEDICAL COURSE: The patient was followed by Dr. Colón and Dr. Engel while on rehab unit she was seen in consultation by Dr. Dietz for wound care. His impression was pressure ulcer right buttock unstageable and urinary incontinence compounded by limited mobility. He recommended continuing barrier cream and pressure relief. He indicated that the patient will follow up on an outpatient basis with Dr. Cassidy. The patient was seen by Dr. Nelson podiatry and the patient had debridement of toenails manually and mechanically. His impression was diabetic neuropathy, onychomycosis, hammer digit syndrome and atherosclerosis. She continued on O2 by nasal cannula, O2 sats were 95% on 11/19/2016 with two liters O2 by nasal cannula. She was afebrile during her stay. Pulse was 63 on 11/19/2016, blood pressure 144/70, respirations 18. Glucometer readings from 11/14-11/14 varied between 85 and 300. Medications were adjusted. Her hemoglobin A1c was 8.9 on 11/17/2016 indicating poor recent control. Chemistry on 11/14/2016 showed normal BUN, creatinine, electrolytes. Blood glucose was 116. H and H on 11/14/2016 was 10.6/36, platelet count 187,000, WBC 6.8. Overall, she progressed well. REHABILITATION COURSE: She was assessed by speech therapy upon admission and found to be cognitively intact and they signed off. PT notes upon admission, the patient performed bed mobility and transfers with contact guard and drove a power chair 300 feet with modified independence. She has made good progress and is modified independent with bed mobility and transfers and drives a power chair 300 feet with modified independence. Car transfers were not attempted at this time. OT notes upon admission, the patient required min assist for transfers and upper body dressing, mod assist for bathing. The patient made progress with therapy and by discharge was completing toilet transfers and grooming with modified independence, setup for upper body dressing, min assist for bathing, max assist for lower body dressing. She will have assistance from home health care and her daughter upon discharge. DISCHARGE INSTRUCTIONS: She will have home healthcare in [place], [place]. She will follow up with her local physician. Continue current diet and Accu-Cheks. DISCHARGE MEDICATIONS: Cipro 500 mg p.o. b.i.d., hydrocodone/APAP 5/325 one tablet p.o. q.4h. p.r.n. moderate pain ketaconazole cream topically b.i.d., Calmoseptine topically b.i.d., albuterol 2 puffs q.6h. p.r.n. shortness of breath. Amlodipine 10 mg p.o. daily, Lipitor 40 mg p.o. at bedtime, Coreg 12.5 mg p.o. b.i.d., cetirizine 10 mg p.o. daily, vitamin D3 50,000 international units p.o. q. Sunday Flexeril 10 mg p.o. at bedtime and t.i.d. p.r.n. muscle spasms, diltiazem 180 mg p.o. daily, furosemide 40 mg p.o. daily, Lantus insulin 20 units subcu daily and 45 units subcu at bedtime. Humalog sliding scale insulin regimen t.i.d. before meals, omeprazole 20 mg p.o. daily, KCl 20 mEq p.o. daily, spironolactone 50 mg p.o. every day, diazepam 5 mg p.o. q.i.d. p.r.n. anxiety, Voltaren gel topically q.6h. p.r.n. arthritic pain, Imdur 30 mg p.o. daily, Xarelto 20 mg p.o. daily. DISCHARGE DIAGNOSES: 1. Rehabilitation general debilitation secondary to sepsis due to urinary tract infection, treated. 2. Morbid obesity. 3. Insulin-dependent diabetes mellitus. 4. Hypertension, controlled on medication. 5. Gastroesophageal reflux disease, on medication. 6. Prior right-sided stroke with minimal residual left hemiparesis. 7. Right below the knee amputation, old. 8. Diabetic ulcers residual right leg and left toe with MRSA drainage on contact precautions, improved. 9. Urinary incontinence, wears pads at home. 10. Pressure ulcer right buttock unstageable 11. Diabetic peripheral neuropathy. 12. Onychomycosis. 13. Hammer digit syndrome. 14. Atherosclerosis. 15. Chronic obstructive pulmonary disease, O2 dependent. 16. Remote history of tobacco abuse. CONDITION AT DISCHARGE: Improved and stable. PROGNOSIS: Rehab prognosis appears good for continued improvement at home and return to independent living with some assistance from family. The patient had been modified independent at the power wheelchair level of function prior to this. Job ID: [id number] DocumentID: [id number] Dictated Date: 11/23/2016 10:23:04 Clerical Transcriber Date: 11/23/2016 11:03:56 Dictated By: MINOR COLÓN MD
== END 2016-11-19 12:00 | disposition home health service (06) | DRG 872 ==
PROVIDERS: ADMIT Physical Medicine & Rehabilitation; ATTEND Physical Medicine & Rehabilitation
DX: A41.9 Sepsis, unspecified organism (principal); N39.0 Urinary tract infection, site not specified; E11.622 Type 2 diabetes mellitus with other skin ulcer; L97.909 Non-pressure chronic ulcer of unspecified part of unspecified lower leg with unspecified severity; I69.354 Hemiplegia and hemiparesis following cerebral infarction affecting left non-dominant side; I13.0 Hypertensive heart and chronic kidney disease with heart failure and stage 1 through stage 4 chronic kidney disease, or unspecified chronic kidney disease; I50.9 Heart failure, unspecified; N18.9 Chronic kidney disease, unspecified; E66.01 Morbid (severe) obesity due to excess calories; Z68.42 Body mass index [BMI] 45.0-49.9, adult; G47.33 Obstructive sleep apnea (adult) (pediatric); R32 Unspecified urinary incontinence; L89.310 Pressure ulcer of right buttock, unstageable; R35.0 Frequency of micturition; E11.40 Type 2 diabetes mellitus with diabetic neuropathy, unspecified; B35.1 Tinea unguium; E78.5 Hyperlipidemia, unspecified; I73.9 Peripheral vascular disease, unspecified; K21.9 Gastro-esophageal reflux disease without esophagitis; Z89.511 Acquired absence of right leg below knee; Z79.4 Long term (current) use of insulin
CPT/HCPCS: 36415; 80053; 82962; 83036; 85025; 94640; 94760